=== PATIENT | male | born 1935 | race Caucasian/White ===

== ENCOUNTER 2020-06-16 08:58 | Outpatient (CLI) | payer MEDICARE, SELFPAY ==
--- NOTE | ~2020-06-16 | NM_ITS ---
EXAMINATION: NM hepatobiliary wo pharm DATE: 06/16/2020 13:51 INDICATION: Other specified diseases of biliary tract. Right upper quadrant abdominal pain. Nausea. COMPARISON: None. TECHNIQUE: 5.2 mCi Tc-99m mebrofenin (Choletec) was administered intravenously. Scintigraphic images of the abdomen were obtained for one hour. Then, delayed images were obtained at 4 hours. FINDINGS: There is delayed clearance of radiotracer from the blood pool. There is homogeneous tracer uptake by the liver. At 4 hours, most of the activity remains in the liver. A small amount of activit y has passed to the bowel. Trace activity in the gallbladder fossa is likely in the gallbladder. IMPRESSION: 1. Abnormal persistence of activity in the liver, which may be seen with hepatocellular dysfunction or partial common duct obstruction. Reviewed, dictated and finalized at location A. ISSIONED SALES ASSOCIATE IMPRESSION: 1. Abnormal persistence of activity in the liver, which may be seen with hepat ocellular dysfunction or partial common duct obstruction.
[2020-06-16 09:30] LABS: Basophils Percent Auto 0.3 % (0.2-1.2); Eosinophils Absolute Auto 0.1 K/mm3 (0-0.3); Eosinophils Percent Auto 0.5 % (0-4.4); Hematocrit 40.4 % (42.0-52.0); Hemoglobin 13.3 g/dL (14.0-18.0); Immature Granulocyte Absolute 0.03 K/mm3 (0.00-0.031); Immature Granulocyte Percent A 0.3 % (0-0.5); Lymphocytes Absolute Auto 1.07 K/mm3 (0.9-3.2); Lymphocytes Percent Auto 10.8 % (18.3-44.2); Mean Corpuscular HGB Conc 32.9 g/dl (32-36); Mean Corpuscular Hemoglobin 30.6 pg (26-34); Mean Corpuscular Volume 93.1 fl (80-100); Mean Platelet Volume 9.3 fl (7.4-10.4); Monocytes Absolute Auto 0.6 K/mm3 (0.1-0.6); Monocytes Percent Auto 6.2 % (2.6-8.5); Neutrophils Absolute Auto 8.1 K/mm3 (1.3-6.7); Neutrophils Percent Auto 81.9 % (45.5-73.1); Platelet Count Result 292 k/mm3 (150-375); Red Blood Count 4.34 M/mm3 (4.6-6.20); Red Cell Distribution Width 14.1 % (11.5-14.5); White Blood Count 9.9 K/mm3 (4.5-10.0)
[2020-06-16 09:57] LABS: Alanine Aminotransferase 718 U/L (4-50); Albumin Level 3.8 g/dL (3.5-5.1); Alkaline Phosphatase 629 U/L (38-126); Amylase 81 U/L (30-110); Anion Gap 10 mmol/L (8-16); Aspartate Amino Transferase 662 U/L (17-59); Bilirubin Direct 2.5 mg/dL (0-0.3); Bilirubin,Total 5.2 mg/dL (0.2-1.3); Blood Urea Nitrogen 43 mg/dL (9-20); Calcium 9.8 mg/dL (8.4-10.2); Carbon Dioxide 28 mmol/L (22-30); Chloride 100 mmol/L (98-107); Estimated Glomerular Filt Rate 32; Glucose 181 mg/dL (75-110); Lipase 103 U/L (23-300); Potassium 4.9 mmol/L (3.4-5.0); Sodium 138 mmol/L (137-145)
== END 2020-06-16 08:59 | disposition home or self-care (01) ==
PROVIDERS: PCP Physician Assistant; Visit Provider Physician Assistant
DX: K83.8 Other specified diseases of biliary tract (principal); R93.2 Abnormal findings on diagnostic imaging of liver and biliary tract
CPT/HCPCS: 36415; 78226; 80048; 80076; 82150; 83690; 85025; A9537

== ENCOUNTER → 2020-06-28 12:45 | Outpatient (CLI) | payer MEDICARE, SELFPAY ==
--- NOTE | ~2020-06-28 | MR_ITS ---
EXAMINATION: MR MRCP wo con/w 3D wo ind pp DATE: 06/28/2020 14:45 INDICATION: Calculus of the gallbladder with chronic cholecystitis. TECHNIQUE: Magnetic resonance imaging (MRI) of the abdomen was performed without intravenous contrast due to decreased estimated GFR. Sequences included coronal T2-weighted FS FSE, coronal T2-weighted F SE, axial T1-weighted LAVA, coronal FS FIESTA, axial dual-echo T1-weighted SPGR, coronal lava-FLEX, s agittal T2-weighted FSE, axial T2-weighted FSE, and axial DWI. Thick-slab T2-weighted FSE images were obtained for magnetic resonance cholangiopancreatography (MRCP). Maximum intensity projection 3-D re constructions of the volumetric data were created by the technologist. COMPARISON: Hepatobiliary scintigraphy 06/16/2020 FINDINGS: ABDOMEN MRI: There is mild intrahepatic biliary duct dilatation. The common duct is dilated to 12 mm. There is a 10 mm stone in the distal common bile duct. There are gallstones in the gallbladder, whic h is normal in size. There are small cystic lesions in the pancreas measuring up to 6 mm, likely carol ann gn. The spleen and adrenal glands are normal. There are numerous cysts and hemorrhagic cysts in the k idneys measuring up to 9.0 cm on the left. There is severe atrophy of right kidney. There is severe r ight hydronephrosis. There is 11 mm stone in proximal right ureter. There are no dilated loops of bow el. There is a bladder diverticulum on the right. There is no free intraperitoneal fluid. There are n o pathologically enlarged lymph nodes. ABDOMEN MRCP: There is a 10 mm stone in the distal common bile duct. There is intrahepatic biliary du ct dilatation and dilatation of the common bile duct to 12 mm. IMPRESSION: 1. 10 mm stone in the distal common bile duct with intrahepatic and extrahepatic biliary duct dilatat ion. 2. Cholelithiasis. No evidence of acute cholecystitis. 3. Severe right hydronephrosis and severe right kidney atrophy with 11 mm stone in proximal right ure ter. Reviewed, dictated and finalized at location B. PUMPER IMPRESSION: 1. 10 mm stone in the distal common bile duct with intrahepatic and extrahepati c biliary duct dilatation. 2. Cholelithiasis. No evidence of acute cholecystitis. 3. Severe right hydronephrosis and severe right kidney atrophy with 11 mm stone in proximal right ureter.
[2020-06-28 13:20] LABS: Estimated Glomerular Filt Rate 39
== END ==
PROVIDERS: Visit Provider Surgery
DX: K80.10 Calculus of gallbladder with chronic cholecystitis without obstruction (principal); N13.30 Unspecified hydronephrosis; N26.1 Atrophy of kidney (terminal); N20.1 Calculus of ureter
CPT/HCPCS: 74181; 76376

== ENCOUNTER 2020-07-01 00:18 | Outpatient (CLI) | payer MEDICARE, SELFPAY ==
[2020-07-01 17:38] LABS: SARS-CoV-2 RNA PCR Negative
== END 2020-07-01 00:19 | disposition home or self-care (01) ==
LOC: ANHCOVIDDT 00:20
PROVIDERS: Visit Provider Internal Medicine Gastroenterology
DX: Z01.812 Encounter for preprocedural laboratory examination (principal); Z20.822 Contact with and (suspected) exposure to COVID-19
CPT/HCPCS: C9803; U0003; U0005

== ENCOUNTER 2020-07-05 00:56 | Day surgery (SDC) | payer MEDICARE, SELFPAY ==
[2020-06-30 13:21] VITALS: BMI 26.0
--- NOTE | ~2020-07-05 | XR_ITS ---
EXAMINATION: XR ERCP DATE: 07/05/2020 14:20 INDICATION: Choledocholithiasis. TECHNIQUE: 7 spot fluoroscopic images of the right upper quadrant were obtained during endoscopic ret rograde cholangiopancreatography (ERCP). Fluoroscopy exposure time was 158 seconds. COMPARISON: MRCP 06/28/2020 FINDINGS: There is an endoscope with tip in the second portion of the duodenum. There is a stone in t he common bile duct. Images demonstrate balloon sweeping of the common duct. IMPRESSION: 1. Choledocholithiasis. Please refer to the ERCP procedure note for additional details. Reviewed, dictated and finalized at location A. [employer]
--- NOTE | 2020-07-05 12:15 | WPDANESEPPF ---
Anes - Initial Pre Proc Eval Procedure: Operation Date: 07/05/20 13:30 Proposed Procedures p Endoscopic Retro Cholangiopancreatogram - Yan Guardado MD Date/Time: 07/05/20 12:15 Surgeon: Yan Guardado MD Pre Op Diagnosis: Choledocholithiasis Patient Data Age: 84 Gender: M Height: 1.75 m Weight: 80 kg Allergies Allergy/AdvReac Type Severity Reaction Status Date / Time No Known Allergies Allergy Verified 07/05/20 12:16 Home Medications Medication Instructions Recorded Confirmed Type aspirin 81 mg tablet,delayed 81 mg PO DAILY 02/17/20 07/04/20 History release metformin 1,000 mg tablet 1,000 mg PO QAM 02/17/20 07/04/20 History metoprolol tartrate 25 mg tablet 25 mg PO QAM 02/17/20 07/04/20 History potassium chloride 20 mEq 20 meq PO DAILY 02/17/20 07/04/20 History tablet,extended release(part/cryst) simvastatin 40 mg tablet 40 mg PO DAILY 02/17/20 07/04/20 History rivaroxaban 2.5 mg tablet 2.5 mg PO BID 06/20/20 07/04/20 History cyanocobalamin (vitamin B-12) 1,000 mcg PO DAILY 06/30/20 07/04/20 History losartan-hydrochlorothiazide 1 tablet PO QAM 06/30/20 07/04/20 History xxohgyudakoc-ypu-rcap-FA-vit K 1 tablet PO DAILY 06/30/20 07/04/20 History [Adults Multivitamin] ascorbic acid-bioflavonoids 1 tablet PO BID 07/04/20 07/04/20 History cholecalciferol (vitamin D3) 50 mcg PO BID 07/04/20 07/04/20 History [Vitamin D3] omeprazole magnesium [Prilosec OTC] 20 mg PO DAILY PRN 07/04/20 07/04/20 History zinc gluconate 30 mg PO BID 07/04/20 07/04/20 History ECG: sr, 1st degree avb Other Studies: stress test 01/2020 - small area of mild ischemia in mid-distal ant wall. Unchanged from 5 years ago. 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 S/P hernia surgery umbilical S/P trigger finger release Family History Family History Other Family history of heart disease in male family member before age 55 Family history of malignant neoplasm Family history of tuberculosis Social History Social History (Updated 06/22/20 @ 09:39 by Kala Scott [facility]) Smoking packs per day: 2 Smoking cigarettes per day: 40.0 Years smoked: 60 Smoking pack-years: 120.00 Smoking status: Former smoker Tobacco type: cigarettes Smoking end date: 12/08/09 Alcohol intake: current Substance use: never Substance use type: does not use Living arrangements: with family Additional living arrangements comments: Gender identity (if verbalized by the patient): Male Spiritual care concerns: No Anes - Eval Final PreProcedure Day of Procedure 07/05/20 12:15 Patient weight: overweight Heart: regular rate and rhythm Lungs: clear to auscultation and normal air movement Airway: Mallampati scale class II Neurological: alert and oriented Last oral intake: >/= 8 hours ASA classification: III Emergent: no Anesthetic plan: proceed Anesthesia type and monitoring: general ETT Informed Consent: The patient's anesthetic plan and its attendant risks and benefits were discussed with the patient/family/POA. Questions were solicited and answers provided to the satisfaction of the patient/family/POA.
[2020-07-05 12:18] VITALS: BP 129/36; PULSE 43; RESP 15; TEMP 36.4; O2SAT 99; BMI 25.6
--- NOTE | 2020-07-05 12:22 | ECG_ITS ---
Measurements Intervals [place] Rate: 44 P: 2 NH: 256 QRS: -37 QRSD: 114 T: 83 QT: 480 QTc: 415 Interpretive Statements SINUS BRADYCARDIA WITH FIRST DEGREE AV BLOCK LEFT AXIS DEVIATION INCOMPLETE LEFT BUNDLE BRANCH BLOCK DELAYED PRECORDIAL R/S TRANSITION BORDERLINE ST-T WAVE ABNORMALITY- HIGH LATERAL LEADS BASELINE ARTIFACT- I, II ABNORMAL ECG Electronically Signed On 07-05-2020 12:49:49 EXTRUSION MANAGER by Romain Ocampo D.O.
[2020-07-05] MEDS: LACTATED RINGERS 1,000 ML 150 ML IV CONT (12:32)
[2020-07-05] MEDS: levoFLOXacin 500 MG/D5W 100 ML 500 MG/100 ML BAG 100 MG IVPB (12:36)
[2020-07-05 12:40] LABS: Glucose Point of Care 150 (65-105)
--- NOTE | 2020-07-05 13:31 | PM.HPGS ---
History of Present Illness History of Present Illness Consent: Risks, benefits, and alternatives have been discussed and questions answered. Patient agrees to proceed with procedure. Chief complaint: Choledocholithiasis Narrative: Byron Ovalle is a 84 year old male with recent diagnosis of chronic cholecystitis after intermittent epigastric pain with nausea and vomiting, had elevated liver enzymes and seeing by Dr Lamar, MRCP also showed choledocholithiasis. Last few days he has been asymptomatic, no more nausea or pain. He also has been holding his blood thinner since Saturday. Denies history of pancreatitis or etoh use. Review of Systems Constitutional: Constitutional: Denies headache(s) and Denies weakness Eyes: Eyes: Denies blurry vision ENT: Reports Normal hearing present, Denies headache(s) and Denies neck pain Cardiovascular: Cardiovascular: Denies chest pain and Denies dyspnea Respiratory: Respiratory: Denies dyspnea Gastrointestinal: Gastrointestinal: Reports no additional gastrointestinal complaints Genitourinary: Genitourinary: Denies dysuria Musculoskeletal: Musculoskeletal: Denies neck pain Integumentary/Breasts: Skin/Breast: Denies dry skin Neurologic: Reports Normal hearing present, Denies headache(s) and Denies weakness Psychiatric: Psychiatric: Denies anxiety Endocrine: Endocrine: Denies change in body appearance Hematologic/Lymphatic: Hematologic/Lymphatic: Denies easy bleeding Allergic/Immunologic: Allergic/Immunologic: Denies urticaria PMFSH Past Medical History Medical History (Updated 07/05/20 @ 13:33 by Yan Guardado MD) CAD (coronary artery disease) Diabetes Elevated liver enzymes High cholesterol Hypertension Surgical History Surgical History (Updated 07/05/20 @ 12:17 by Kulwant Hood MD) 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 S/P hernia surgery umbilical S/P trigger finger release Family History Family History Other Family history of heart disease in male family member before age 55 Family history of malignant neoplasm Family history of tuberculosis Social History Social History (Updated 06/22/20 @ 09:39 by Kala Scott CMA) Smoking packs per day: 2 Smoking cigarettes per day: 40.0 Years smoked: 60 Smoking pack-years: 120.00 Smoking status: Former smoker Tobacco type: cigarettes Smoking end date: 12/08/09 Alcohol intake: current Substance use: never Substance use type: does not use Living arrangements: with family Additional living arrangements comments: Gender identity (if verbalized by the patient): Male Spiritual care concerns: No Meds Home Medications and Allergies Home Medications Medication Instructions Recorded Confirmed Type aspirin 81 mg tablet,delayed 81 mg PO DAILY 02/17/20 07/05/20 History release metformin 1,000 mg tablet 1,000 mg PO QAM 02/17/20 07/05/20 History metoprolol tartrate 25 mg tablet 25 mg PO QAM 02/17/20 07/05/20 History potassium chloride 20 mEq 20 meq PO DAILY 02/17/20 07/05/20 History tablet,extended release(part/cryst) simvastatin 40 mg tablet 40 mg PO DAILY 02/17/20 07/05/20 History rivaroxaban 2.5 mg tablet 2.5 mg PO BID 06/20/20 07/05/20 History cyanocobalamin (vitamin B-12) 1,000 mcg PO DAILY 06/30/20 07/05/20 History losartan-hydrochlorothiazide 1 tablet PO QAM 06/30/20 07/05/20 History rpnvoajeikow-qsa-jwaf-FA-vit K 1 tablet PO DAILY 06/30/20 07/05/20 History [Adults Multivitamin] ascorbic acid-bioflavonoids 1 tablet PO BID 07/04/20 07/05/20 History cholecalciferol (vitamin D3) 50 mcg PO BID 07/04/20 07/05/20 History [Vitamin D3] omeprazole magnesium [Prilosec OTC] 20 mg PO DAILY PRN 07/04/20 07/05/20 History zinc gluconate 30 mg PO BID 07/04/20 07/05/20 History Allergies Allergy/AdvReac Type Severity Reaction Status Date / Time No Known Allergies Allergy Verified 07/05/20
[2020-07-05] MEDS: INDOMETHACIN 50 MG SUPP.RECT 100 MG RECTAL (13:44)
[2020-07-05 14:24] VITALS: BP 162/74; PULSE 73; RESP 15; TEMP 36.6; O2SAT 100
[2020-07-05 14:34] VITALS: BP 129/79; PULSE 53; RESP 15; O2SAT 100
[2020-07-05 14:38] LABS: Glucose Point of Care 142 (65-105)
[2020-07-05 14:43] VITALS: BP 141/57; PULSE 57; RESP 15; O2SAT 100
[2020-07-05 14:53] VITALS: BP 154/65; PULSE 46; RESP 15; O2SAT 99
[2020-07-05 15:03] VITALS: BP 112/78; PULSE 52; RESP 15; O2SAT 100
== END 2020-07-05 15:30 | disposition home or self-care (01) ==
PROVIDERS: PCP Physician Assistant; Visit Provider Internal Medicine Gastroenterology
PROC: (CPT 43260; principal; 2020-07-05 13:30)
DX: R94.5 Abnormal results of liver function studies (principal); K80.64 Calculus of gallbladder and bile duct with chronic cholecystitis without obstruction; K57.10 Diverticulosis of small intestine without perforation or abscess without bleeding; K29.80 Duodenitis without bleeding; I25.10 Atherosclerotic heart disease of native coronary artery without angina pectoris; E11.9 Type 2 diabetes mellitus without complications; I10 Essential (primary) hypertension; E78.00 Pure hypercholesterolemia, unspecified; Z95.1 Presence of aortocoronary bypass graft; Z87.891 Personal history of nicotine dependence; Z79.82 Long term (current) use of aspirin; Z79.01 Long term (current) use of anticoagulants; Z79.84 Long term (current) use of oral hypoglycemic drugs
CPT/HCPCS: 43262; 43264; 74329; 93005; A9270; J1956; J2704; J7120

== ENCOUNTER 2020-07-06 00:33 | Day surgery (SDC) | payer MEDICARE, SELFPAY ==
[2020-07-04 14:48] VITALS: BMI 26.0
[2020-07-06] VITALS (8 sets, daily range): BP systolic 130–152; BP diastolic 46–94; PULSE 43–62; RESP 14–16; TEMP 36.5–36.6; O2SAT 94–100
--- NOTE | ~2020-07-06 | XR_ITS ---
EXAMINATION: XR cholangiogram surg 1st inj DATE: 07/06/2020 09:07 INDICATION: Intraoperative evaluation during laparoscopic cholecystectomy TECHNIQUE: Multiple fluoroscopic images of the right upper quadrant were obtained during intraoperati ve cholangiography performed by Dr. Lamar. Radiologist was not present for the procedure imaging. A total of 271 fluoroscopic images were obtained. The amount of fluoroscopy time used during this pro cedure was 0.7 minutes. COMPARISON: None. FINDINGS: Cannulation of the cystic duct demonstrates filling of a mildly dilated common bile duct wh ich tapers abruptly at the ampulla. There is an irregular filling defect in the distal duct, initiall y with spiculated margins which moves towards the ampulla and changes in configuration during the cou rse of injection which would favor sludge over gallstones. A residual and smaller more subtle filling defect remains in the distal duct on the second set of cine images. Contrast fills a prominent diver ticulum arising from the second portion of the duodenum. Multiple surgical clips consistent with chol ecystectomy. Trace amount of contrast extravasation at the site of cannulation. IMPRESSION: 1. Persistent mildly dilated common bile duct with residual small bowel irregular filling defects at the distal duct which appear to change in morphology which would favor sludge over stones. Reviewed, dictated and finalized at location B. OPERATOR IMPRESSION: 1. Persistent mildly dilated common bile duct with residual small bowel irregul ar filling defects at the distal duct which appear to change in morphology whic h would favor sludge over stones.
--- NOTE | 2020-07-06 06:56 | WPDANESEFPP ---
Anes - Eval Final PreProcedure Day of Procedure 07/06/20 06:56 Patient weight: overweight Heart: regular rate and rhythm Lungs: clear to auscultation and normal air movement Airway: Mallampati scale class II Neurological: alert and oriented Last oral intake: >/= 8 hours ASA classification: III Emergent: no Anesthetic plan: proceed Anesthesia type and monitoring: general ETT and standard monitoring Informed Consent: The patient's anesthetic plan and its attendant risks and benefits were discussed with the patient/family/POA. Questions were solicited and answers provided to the satisfaction of the patient/family/POA.
[2020-07-06] MEDS: ACETAMINOPHEN 500 MG TABLET 1000 MG PO (07:05)
[2020-07-06] MEDS: LACTATED RINGERS 1,000 ML 30 ML IV CONT ×2 (07:06→09:45)
[2020-07-06] MEDS: KETOROLAC 15 MG/ML VIAL (*BKC) IV PUSH (07:08)
[2020-07-06 07:10] LABS: Glucose Point of Care 128 (65-105)
--- NOTE | 2020-07-06 07:18 | WPDHPUPDATE1 ---
History and Physical Update Update Date/Time: 07/06/20 07:18 History and Physical has been reviewed, including an updated exam of the patient. There are changes in the patient's condition. Pt had an ERCP yesterday and a medium size stone was extracted without problems. Risks, benefits, and alternatives have been discussed and questions answered. Patient agrees to proceed with procedure.
[2020-07-06 07:20] LABS: Hematocrit 37.8 % (42.0-52.0); Hemoglobin 12.5 g/dL (14.0-18.0); Mean Corpuscular HGB Conc 33.1 g/dl (32-36); Mean Corpuscular Hemoglobin 29.8 pg (26-34); Mean Corpuscular Volume 90.2 fl (80-100); Mean Platelet Volume 9.7 fl (7.4-10.4); Platelet Count Result 227 k/mm3 (150-375); Red Blood Count 4.19 M/mm3 (4.6-6.20); Red Cell Distribution Width 13.2 % (11.5-14.5); White Blood Count 6.9 K/mm3 (4.5-10.0)
--- NOTE | 2020-07-06 07:32 | SUR.PREOP ---
pt taken to bathroom to void [id number]
[2020-07-06 07:34] LABS: Alanine Aminotransferase 170 U/L (4-50); Albumin Level 3.4 g/dL (3.5-5.1); Alkaline Phosphatase 625 U/L (38-126); Amylase 95 U/L (30-110); Anion Gap 5 mmol/L (8-16); Aspartate Amino Transferase 52 U/L (17-59); Bilirubin,Total 0.9 mg/dL (0.2-1.3); Blood Urea Nitrogen 27 mg/dL (9-20); Calcium 8.9 mg/dL (8.4-10.2); Carbon Dioxide 26 mmol/L (22-30); Chloride 104 mmol/L (98-107); Estimated CRCL calculation 38 ml/min; Estimated Glomerular Filt Rate 53; Glucose 132 mg/dL (75-110); Lipase 88 U/L (23-300); Potassium 4.2 mmol/L (3.4-5.0); Sodium 135 mmol/L (137-145)
[2020-07-06] MEDS: ceFAZolin 2 GM/D5W 50 ML 2 GM/50 ML BAG IVPB (08:11)
[2020-07-06] MEDS: BUPIVACAINE/EPINEPHRINE 0.5% 10 ML VIAL 30 ML INFILTRATE (08:15)
[2020-07-06 09:51] LABS: Glucose Point of Care 163 (65-105)
--- NOTE | 2020-07-06 17:32 | PM.PROC ---
Procedure Note - Detailed Date of procedure: 07/06/20 Pre-op diagnosis: chronic cholecystitis with cholelithiasis 2. Recent choledocholithiasis status post ERCP Post-op diagnosis: same Procedure performed: Laparoscopic cholecystectomy with intraoperative cholangiogram. Description of procedure: Procedure Details: Patient was seen preoperatively in the holding area and risks, benefits and alternatives confirmed. Patient was taken to the operating room and general anesthesia was induced. A time out was then preformed with the surgery team confirming patient and site of surgery. The abdomen was prepped and draped in the usual sterile fashion. Because this patient has previously had an umbilical hernia repair I entered the abdomen with the Veress needle technique in the left upper quadrant 2 fingerbreadths below the costal margin. First the patient was placed slightly head up and an OG tube was in place which was placed to suction. Following this local anesthetic was infiltrated in the skin and 11 blade knife was used to make a 5 mm incision. Two towel clips were applied to the skin. A regular size Veress needle was connected to a syringe and the plunger removed. With 5 cc of saline in it we carefully advanced the Veress needle through the 1st layer of fascia and opened the Veress needle to the syringe. Following this I felt a nice pop through the peritoneum and there was a good water flow of the water drop test from the syringe. This was removed and CO2 gas was connected. We then insufflated the abdomen to 14 mmHg pressure CO2 gas. Following this I placed a 5 mm trocar over the 0 degree 5 mm scope carefully twisted this into the abdomen without difficulty. We entered a nicely inflated peritoneum and CO2 gas was connected to this port and increased to a 4o L. per minute flow. Following this we carefully inspected underneath the area of the umbilicus and found that on the right lateral part of his scar from his previous umbilical incision we could make a small incision and insert our 12 mm trocar for the 10 mm camera just a little bit to the right of his umbilicus. This was placed under direct vision using the laparoscope in left upper quadrant the abdomen. Subsequent I placed the 2 other 5 mm ports. The following trocars were introduced under direct vision: two 5 mm trocars along the right costal margin. We found significant adhesions to the gallbladder which were taken down with Bovie cautery using both the right angle cautery and the scissors. Once we could nicely see the triangle of colo began the dissection to dissect out the cystic duct and cystic artery. The gall bladder was grasped and the cystic duct and artery were dissected free and clipped with an 5 mm endo-clip customer order clerk. A small hole was made in the cystic duct with endoshears and a cholagio-cath introduced. A cholangiogram was obtained revealing free flow into the cystic duct, common bile duct, common hepatic, right and left hepatic ducts with free flow into the duodenum with not of only small filling defects suggesting sludge in the extrahepatic biliary tree and there was still some dilation of the entire CBD. At this point I flushed the system with 20 cc of saline and repeated the run on the cholangiogram. On the 2nd run there was perhaps a seizure S Thatch of still some small filling defects present in the distal common bile duct but this had cleared significantly and there was a significant amount of dye within the duodenum. Following this I consulted with from her from Radiology and he agreed with the above assessment. He agreed that there was still some dilation of the common bile duct and however that there was good dye flow into the duodenum so he felt that this would clear on its own. This was a specially felt to be true in view of the recent sphincterotomy and stone extraction done by ERCP yesterday by Dr. Farr. At this point then the catheter was removed and the cystic duct was clippe
== END 2020-07-06 12:08 | disposition home or self-care (01) ==
PROVIDERS: PCP Physician Assistant; Visit Provider Surgery
PROC: 0FT44ZZ Resection of Gallbladder, Percutaneous Endoscopic Approach (ICD-10-PCS; CPT 47562; principal; 2020-07-06 07:30)
DX: K80.10 Calculus of gallbladder with chronic cholecystitis without obstruction (principal); K83.8 Other specified diseases of biliary tract; I10 Essential (primary) hypertension; E11.51 Type 2 diabetes mellitus with diabetic peripheral angiopathy without gangrene; E78.00 Pure hypercholesterolemia, unspecified; Z87.891 Personal history of nicotine dependence; Z79.82 Long term (current) use of aspirin; Z79.84 Long term (current) use of oral hypoglycemic drugs; Z79.01 Long term (current) use of anticoagulants
CPT/HCPCS: 47563; 36415; 74300; 80053; 80076; 82150; 83690; 85027; 88304; A9270; J0690; J1100; J1885; J2370; J2405; J2704; J2710; J3010; J7030; J7120; Q9966

== ENCOUNTER → 2021-01-17 11:30 | Outpatient (REF) | payer MEDICARE, SELFPAY | LOC: ANHLAB 11:30 | PROVIDERS: PCP Physician Assistant; Visit Provider Nurse Practitioner | DX: L81.4 Other melanin hyperpigmentation (principal) | CPT/HCPCS: 88305; 88342 ==

== ENCOUNTER 2021-02-15 11:25 | Outpatient (CLI) | payer MEDICARE, SELFPAY ==
--- NOTE | 2021-02-15 | ECG_ITS ---
Measurements Intervals [place] Rate: 40 P: -19 TN: 320 QRS: -39 QRSD: 125 T: 87 QT: 492 QTc: 404 Interpretive Statements SINUS BRADYCARDIA WITH MARKED FIRST DEGREE AV BLOCK LEFT AXIS DEVIATION RIGHT BUNDLE BRANCH BLOCK BASELINE ARTIFACT- II, III, AVF ABNORMAL ECG Electronically Signed On 02-15-2021 13:55:02 CDT by Romain Ocampo D.O.
== END 2021-02-15 11:26 | disposition home or self-care (01) ==
LOC: ANHCARD 11:28
PROVIDERS: PCP Physician Assistant; Visit Provider Internal Medicine Nephrology
DX: I10 Essential (primary) hypertension (principal); E11.21 Type 2 diabetes mellitus with diabetic nephropathy; I12.9 Hypertensive chronic kidney disease with stage 1 through stage 4 chronic kidney disease, or unspecified chronic kidney disease; E11.22 Type 2 diabetes mellitus with diabetic chronic kidney disease; N18.31 Chronic kidney disease, stage 3a; D63.1 Anemia in chronic kidney disease; R94.31 Abnormal electrocardiogram [ECG] [EKG]
CPT/HCPCS: 93005

== ENCOUNTER 2021-03-11 20:53 | Emergency (ER) | payer MEDICARE, SELFPAY ==
[2021-03-11 21:23] VITALS: BP 105/73; PULSE 57; RESP 16; TEMP 36.4; O2SAT 100
[2021-03-11 23:38] VITALS: BP 195/62; PULSE 61; RESP 18; O2SAT 98
--- NOTE | 2021-03-11 23:39 | PC.NURSE ---
Pt moved from ED 21 to ED 2, sitting in chair with present. dressing to right forearm remains dry and intact without evidence of bleeding. pt denies complaints. denies pain. reports was scratched by his daughter's dog, who he believe is UTD on its shots.
--- NOTE | 2021-03-12 02:06 | ED.WOUNDLAC ---
HPI - Wound/Laceration General Chief Complaint: Wound/Laceration Stated Complaint: Dog scratch to right forearm Time Seen by Provider: 03/12/21 01:20 History of Present Illness HPI narrative: Patient is an 85-year-old male who presents ER with a skin tear to the right forearm. A dog jumped up and scratched him with his nail. He was not bit. He is on a blood thinner so has been bleeding persistently. Dog has all of its shots. His tetanus shot is up-to-date. No numbness or tingling or range of motion deficit in the arm. Related Data Home Medications Medication Instructions Recorded Confirmed aspirin 81 mg tablet,delayed 81 mg PO DAILY 02/17/20 01/17/21 release metoprolol tartrate 25 mg tablet 25 mg PO QAM 02/17/20 01/17/21 potassium chloride 20 mEq 20 meq PO DAILY 02/17/20 01/17/21 tablet,extended release(part/cryst) simvastatin 40 mg tablet 40 mg PO DAILY 02/17/20 01/17/21 rivaroxaban 2.5 mg tablet 2.5 mg PO BID 06/20/20 01/17/21 Adults Multivitamin 1 tablet PO DAILY 06/30/20 01/17/21 cyanocobalamin (vitamin B-12) 1,000 mcg PO DAILY 06/30/20 01/17/21 losartan-hydrochlorothiazide 1 tablet PO QAM 06/30/20 01/17/21 cholecalciferol (vitamin D3) 50 mcg PO BID 07/04/20 07/19/20 [Vitamin D3] omeprazole magnesium [Prilosec OTC] 20 mg PO DAILY PRN 07/04/20 07/19/20 omega-3 fatty acids [Fish Oil PO 01/17/21 01/17/21 Concentrate] sitagliptin 25 mg tablet 25 mg PO DAILY 01/17/21 01/17/21 Allergies Allergy/AdvReac Type Severity Reaction Status Date / Time No Known Allergies Allergy Verified 03/11/21 21:29 Review of Systems Musculoskeletal: Musculoskeletal: Denies arthralgias, Denies joint swelling and Denies muscle cramps Integumentary/Breasts: Skin/Breast: Denies erythema and Denies rash Comments: Right forearm skin tear Neurologic: Denies focal weakness and Denies numbness PMFSH Past Medical History Medical History CAD (coronary artery disease) Diabetes Elevated liver enzymes High cholesterol Hypertension Surgical History Surgical History 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 Hx laparoscopic cholecystectomy S/P hernia surgery umbilical S/P trigger finger release Family History Family History Other Family history of heart disease in male family member before age 55 Family history of malignant neoplasm Family history of tuberculosis Social History Social History Smoking packs per day: 2 Smoking cigarettes per day: 40.0 Years smoked: 60 Smoking pack-years: 120.00 Tobacco type: cigarettes Smoking end date: 12/08/09 Alcohol intake: current Substance use: never Substance use type: does not use Additional living arrangements comments: Gender identity (if verbalized by the patient): Male Spiritual care concerns: No Exam Narrative: GENERAL: Well-appearing, well-nourished, and in no acute distress. HEAD: Normocephalic, atraumatic. EXTREMITIES: Normal range of motion. No edema. V-shaped laceration right forearm bleeding controlled, 2.5 cm in length. SKIN: Warm, dry, no rash. NEURO: Alert and oriented x3. PSYCH: Normal mood and affect. Course Course Emergency Course: Wound dressed with Tegaderm and antibiotic ointment. Discharge home. Vital Signs Vital signs: Vital Signs Temperature 97.5 F L 03/11/21 21:23 Pulse Rate 57 L 03/11/21 21:23 Respiratory Rate 16 03/11/21 21:23 Blood Pressure 105/73 03/11/21 21:23 Pulse Oximetry 100 03/11/21 21:23 Temperature 97.5 F L 03/11/21 21:23 Pulse Rate 61 03/11/21 23:38 Respiratory Rate 18 03/11/21 23:38 Blood Pressure 195/62 H 03/11/21 23:38 Pulse Oximetry 98 03/11/21 23:38 Discharge Plan Discharge Clinical Impression: Skin tear Adelita
[2021-03-12 02:22] VITALS: BP 160/80; PULSE 72; RESP 14; O2SAT 99
== END 2021-03-12 02:26 | disposition home or self-care (01) ==
PROVIDERS: Emergency Provider Emergency Medicine; PCP Physician Assistant
DX: S51.811A Laceration without foreign body of right forearm, initial encounter (principal); I25.10 Atherosclerotic heart disease of native coronary artery without angina pectoris; E11.9 Type 2 diabetes mellitus without complications; E78.00 Pure hypercholesterolemia, unspecified; I10 Essential (primary) hypertension; Z95.1 Presence of aortocoronary bypass graft; Z79.01 Long term (current) use of anticoagulants; Z79.82 Long term (current) use of aspirin; Z87.891 Personal history of nicotine dependence; W54.8XXA Other contact with dog, initial encounter
CPT/HCPCS: 99282

== ENCOUNTER → 2021-04-03 11:00 | Outpatient (REF) | payer MEDICARE, SELFPAY | LOC: ANHLAB 11:00 | PROVIDERS: PCP Physician Assistant; Visit Provider Nurse Practitioner | DX: L72.8 Other follicular cysts of the skin and subcutaneous tissue (principal) | CPT/HCPCS: 88304 ==

== ENCOUNTER 2021-08-29 00:02 | Day surgery (SDC) | payer MEDICARE, SELFPAY ==
[2021-08-21 13:35] VITALS: BMI 29.5
--- NOTE | 2021-08-24 10:45 | PC.NURSE ---
PATIENT CALLED REGARDING XARELTO, PT IS VERY HARD OF HEARING, INSTRUCTIONS GIVEN TO SPOUSE ALEJANDRO. SHE VERBALIZES UNDERSTANDING FOR HIM TO HOLD XARELTO STARTING ON Saturday08/27/2021
[2021-08-29 07:11] VITALS: BP 130/60; PULSE 82; RESP 16; TEMP 36.1; O2SAT 97; BMI 29.0
[2021-08-29] MEDS: LACTATED RINGERS 1,000 ML 150 ML IV CONT (07:38)
[2021-08-29 07:39] LABS: Glucose Point of Care 153 mg/dl (65-105)
--- NOTE | 2021-08-29 07:48 | WPDANESEPPF ---
Anes - Initial Pre Proc Eval Procedure: Operation Date: 08/29/21 08:30 Proposed Procedures p Screening Colonoscopy - Yan Guardado MD Date/Time: 08/29/21 07:48 Surgeon: Yan Guardado MD Pre Op Diagnosis: hx of colon polyps Patient Data Age: 85 Gender: M Height: 1.73 m Weight: 86.7 kg Last Vital Signs Temp 36.1 C L 08/29/21 07:11 Pulse 82 08/29/21 07:11 Resp 16 08/29/21 07:11 BP 130/60 08/29/21 07:11 Pulse Ox 97 08/29/21 07:11 Allergies Allergy/AdvReac Type Severity Reaction Status Date / Time No Known Allergies Allergy Verified 08/29/21 07:24 Home Medications Medication Instructions Recorded Confirmed Type aspirin 81 mg tablet,delayed 81 mg PO DAILY 02/17/20 08/29/21 History release rivaroxaban 2.5 mg tablet 2.5 mg PO BID 06/20/20 08/29/21 History Adults Multivitamin 1 tablet PO DAILY 06/30/20 08/29/21 History losartan-hydrochlorothiazide 1 tablet PO QAM 06/30/20 08/29/21 History cholecalciferol (vitamin D3) 50 mcg PO BID 07/04/20 08/29/21 History [Vitamin D3] omeprazole magnesium [Prilosec OTC] 20 mg PO DAILY PRN 07/04/20 08/29/21 History sitagliptin 25 mg tablet 25 mg PO DAILY 01/17/21 08/29/21 History [place] 3 Fish Oil 1 cap PO BID 08/21/21 08/29/21 History Vitamin D Synergy 50 mcg PO DAILY 08/21/21 08/29/21 History atorvastatin 40 mg PO DAILY 08/21/21 08/29/21 History cyanocobalamin (vitamin B-12) 500 mcg PO DAILY 08/21/21 08/29/21 History [Vitamin B-12] zinc gluconate [Zinc-50] 50 mg PO DAILY 08/21/21 08/29/21 History Laboratory Tests 08/29/21 07:31 POC Capillary Glucose 153 mg/dl H mg/dl (65-105) Patient hx anesthesia problems: none Family hx anesthesia problems: none Results Review: All pre-operative results and documents have been reviewed as part of the pre-operative evaluation. [facility] Past Medical History Medical History CAD (coronary artery disease) Diabetes Elevated liver enzymes High cholesterol Hypertension PVD (peripheral vascular disease) Surgical History Surgical History 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 Hx laparoscopic cholecystectomy S/P hernia surgery umbilical S/P trigger finger release Family History Family History Other Family history of heart disease in male family member before age 55 Family history of malignant neoplasm Family history of tuberculosis Social History Social History Smoking packs per day: 2 Smoking cigarettes per day: 40.0 Years smoked: 57 Smoking pack-years: 114.00 Smoking status: Former smoker Tobacco type: cigarettes Smoking end date: 12/08/09 Additional smoking assessment comments: SMOKED 2 PKS/DAY FOR APPROX 15YRS Alcohol intake: current Substance use: never Substance use type: does not use Living arrangements: with family Additional living arrangements comments: Gender identity (if verbalized by the patient): Male Spiritual care concerns: No Anes - Eval Final PreProcedure Day of Procedure 08/29/21 07:48 Patient weight: overweight Heart: regular rate and rhythm Lungs: decreased breath sounds Airway: Mallampati scale class II Neurological: other (alert) Last oral intake: >/= 8 hours ASA classification: IV Emergent: no Anesthetic plan: proceed Anesthesia type and monitoring: general GIVS and standard monitoring Results Review: All pre-operative results and documents have been reviewed as part of the pre-operative evaluation. Informed Consent: The patient's anesthetic plan and its attendant risks and benefits were discussed with the patient/family/POA. Questions were solicited and answers provided to the satisfaction of the patient/family/POA.
--- NOTE | 2021-08-29 08:22 | PM.HPGS ---
History of Present Illness History of Present Illness Consent: Risks, benefits, and alternatives have been discussed and questions answered. Patient agrees to proceed with procedure. Chief complaint: hx of colon polyps Narrative: Byron Ovalle is a 85 year old male here for colonoscopy, last one about 5 years ago with polyp Review of Systems Constitutional: Constitutional: Denies headache(s) and Denies weakness Eyes: Eyes: Denies blurry vision ENT: Reports Normal hearing present, Denies headache(s) and Denies neck pain Cardiovascular: Cardiovascular: Denies chest pain and Denies dyspnea Respiratory: Respiratory: Denies dyspnea Gastrointestinal: Gastrointestinal: Reports no additional gastrointestinal complaints Genitourinary: Genitourinary: Denies dysuria Musculoskeletal: Musculoskeletal: Denies neck pain Integumentary/Breasts: Skin/Breast: Denies dry skin Neurologic: Reports Normal hearing present, Denies headache(s) and Denies weakness Psychiatric: Psychiatric: Denies anxiety Endocrine: Endocrine: Denies change in body appearance Hematologic/Lymphatic: Hematologic/Lymphatic: Denies easy bleeding Allergic/Immunologic: Allergic/Immunologic: Denies urticaria PMFSH Past Medical History Medical History (Updated 08/29/21 @ 08:23 by Yan Guardado MD) Adenomatous colon polyp CAD (coronary artery disease) Diabetes Elevated liver enzymes High cholesterol Hypertension PVD (peripheral vascular disease) Surgical History Surgical History 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 Hx laparoscopic cholecystectomy S/P hernia surgery umbilical S/P trigger finger release Family History Family History Other Family history of heart disease in male family member before age 55 Family history of malignant neoplasm Family history of tuberculosis Social History Social History Smoking packs per day: 2 Smoking cigarettes per day: 40.0 Years smoked: 57 Smoking pack-years: 114.00 Smoking status: Former smoker Tobacco type: cigarettes Smoking end date: 12/08/09 Additional smoking assessment comments: SMOKED 2 PKS/DAY FOR APPROX 15YRS Alcohol intake: current Substance use: never Substance use type: does not use Living arrangements: with family Additional living arrangements comments: Gender identity (if verbalized by the patient): Male Spiritual care concerns: No Meds Home Medications and Allergies Home Medications Medication Instructions Recorded Confirmed Type aspirin 81 mg tablet,delayed 81 mg PO DAILY 02/17/20 08/29/21 History release rivaroxaban 2.5 mg tablet 2.5 mg PO BID 06/20/20 08/29/21 History Adults Multivitamin 1 tablet PO DAILY 06/30/20 08/29/21 History losartan-hydrochlorothiazide 1 tablet PO QAM 06/30/20 08/29/21 History cholecalciferol (vitamin D3) 50 mcg PO BID 07/04/20 08/29/21 History [Vitamin D3] omeprazole magnesium [Prilosec OTC] 20 mg PO DAILY PRN 07/04/20 08/29/21 History sitagliptin 25 mg tablet 25 mg PO DAILY 01/17/21 08/29/21 History [place] 3 Fish Oil 1 cap PO BID 08/21/21 08/29/21 History Vitamin D Synergy 50 mcg PO DAILY 08/21/21 08/29/21 History atorvastatin 40 mg PO DAILY 08/21/21 08/29/21 History cyanocobalamin (vitamin B-12) 500 mcg PO DAILY 08/21/21 08/29/21 History [Vitamin B-12] zinc gluconate [Zinc-50] 50 mg PO DAILY 08/21/21 08/29/21 History Allergies Allergy/AdvReac Type Severity Reaction Status Date / Time No Known Allergies Allergy Verified 08/29/21 07:24 Vital Signs Vital Signs - 24 hr 08/29/21 07:11 Temperature 97.0 F L Pulse Rate 82 Respiratory Rate 16 Blood Pressure 130/60 Pulse Oximetry 97 Exam Const: General: comfortable and no acute distress HENMT: General nose exam: Normal nares present Eye
[2021-08-29 08:52] VITALS: BP 122/57; PULSE 71; RESP 22; O2SAT 95
[2021-08-29 09:02] VITALS: BP 139/58; PULSE 70; RESP 19; O2SAT 99
[2021-08-29 09:18] VITALS: BP 143/64; PULSE 65; RESP 20; O2SAT 99
== END 2021-08-29 09:25 | disposition home or self-care (01) ==
PROVIDERS: PCP Physician Assistant; Visit Provider Internal Medicine Gastroenterology
PROC: 0DJD8ZZ Inspection of Lower Intestinal Tract, Via Natural or Artificial Opening Endoscopic (ICD-10-PCS; CPT 45378; principal; 2021-08-29 08:30)
DX: Z12.11 Encounter for screening for malignant neoplasm of colon (principal); K63.5 Polyp of colon; D12.2 Benign neoplasm of ascending colon; D12.4 Benign neoplasm of descending colon; K57.30 Diverticulosis of large intestine without perforation or abscess without bleeding; I25.10 Atherosclerotic heart disease of native coronary artery without angina pectoris; E11.9 Type 2 diabetes mellitus without complications; I10 Essential (primary) hypertension; I73.9 Peripheral vascular disease, unspecified; E78.00 Pure hypercholesterolemia, unspecified; R74.01 Elevation of levels of liver transaminase levels; Z95.1 Presence of aortocoronary bypass graft; Z90.49 Acquired absence of other specified parts of digestive tract; Z87.891 Personal history of nicotine dependence; Z79.01 Long term (current) use of anticoagulants; Z79.82 Long term (current) use of aspirin
CPT/HCPCS: 45385; 45380; 82948; 88305; J2704; J7120

== ENCOUNTER 2022-07-27 15:43 | Outpatient (CLI) | payer MEDICARE, SELFPAY ==
--- NOTE | ~2022-07-27 | CT_ITS ---
Non-contrast CT scan of the Abdomen and Pelvis Clinical indication: Microscopic hematuria Technique: 5 mm axial scans were obtained through the abdomen and pelvis without intravenous or oral contrast. Dose reduction technique was used on this scan by utilizing automated exposure control and iterative reconstruction technique. The dose-length product (DLP) was 1068.43 mGy-cm. Findings: Images through the lung bases reveal possible minimal chronic bibasilar interstitial disea se. There is a 1.6 x 1.1 cm stone in the proximal right ureter, with Hounsfield units of approximately 15 00. There is severe right hydroureteronephrosis up to the level of stone, with marked, diffuse cortic al thinning of the right kidney. There is a 6.2 cm exophytic hyperdense cyst versus solid mass arisin g from the superior right renal pole. Left kidney demonstrates multiple simple and small hyperdense cysts, without hydronephrosis. No left renal or left ureteral stone. The liver, spleen, pancreas, and adrenals appear normal. Cholecystectomy clips noted. There is no aor tic aneurysm. There is extensive atherosclerotic change of the infrarenal abdominal aorta, with appar ent aortic stent present. There is no evidence of bowel obstruction. Images through the pelvis were performed. There is no evidence of ascites or lymphadenopathy. Urinary bladder diverticulum present at the posterior right side of the urinary bladder. Prostate gland is m ildly enlarged. Seminal vesicles are grossly unremarkable. Impression: 1.6 x 1.1 cm proximal right ureteral stone, as detailed above, with associated severe right hydrouret eronephrosis up to the level the stone. 6.2 cm right upper pole hyperdense cyst versus solid mass. Given size of the lesion, recommend ultras ound as an initial further evaluation to assess for cystic versus solid lesion. Pre and postcontrast MR could also be considered as the most sensitive imaging evaluation for solid mass. Severe cortical thinning of the right kidney suggest chronic hydronephrosis. Multiple left renal cysts, as noted above. Urinary bladder diverticulum, as detailed above. Reviewed, dictated and finalized at location M. [facility] Impression: 1.6 x 1.1 cm proximal right ureteral stone, as detailed above, with associated severe right hydroureteronephrosis up to the level the stone. 6.2 cm right upper pole hyperdense cyst versus solid mass. Given size of the le timo, recommend ultrasound as an initial further evaluation to assess for cysti c versus solid lesion. Pre and postcontrast MR could also be considered as the most sensitive imaging evaluation for solid mass. Severe cortical thinning of the right kidney suggest chronic hydronephrosis. Multiple left renal cysts, as noted above. Urinary bladder diverticulum, as detailed above.
== END 2022-07-27 15:44 | disposition home or self-care (01) ==
PROVIDERS: PCP Physician Assistant; Visit Provider Urology
DX: R31.29 Other microscopic hematuria (principal); N28.1 Cyst of kidney, acquired; N20.1 Calculus of ureter
CPT/HCPCS: 74176

== ENCOUNTER 2022-08-17 12:45 | Outpatient (CLI) | payer MEDICARE, SELFPAY ==
--- NOTE | ~2022-08-17 | US_ITS ---
EXAMINATION: US renal BI DATE: 08/17/2022 13:24 INDICATION: Disorder kidneys and ureters TECHNIQUE: Multiple ultrasound grayscale images of the kidneys were obtained. COMPARISON: CT dated 07/27/2022 and MRI dated 06/28/2020 FINDINGS: The right kidney measures 13.2 x 5.1 x 8.6 cm. The left kidney measures 17.9 x 7.5 x 8.9 cm. There is severe right hydronephrosis with severe parenchymal atrophy of the right kidney.. There are multiple simple appearing bilateral anechoic renal cysts the largest on the left measuring 7.1 cm. These incl ude a 5.5 cm anechoic cyst at the upper pole of the right kidney corresponding to the complex cyst of concern evident on prior CT. Normal cortical echogenicity and no hydronephrosis at the left kidney. Shadowing calcification at the left kidney corresponding catheter is chronic calcific lesions on prio r CT. There is a diverticulum at the right posterior aspect of the otherwise normal bladder.. IMPRESSION: 1. Severe right renal atrophy with chronic severe hydronephrosis. 2. Multiple bilateral anechoic renal cysts including the complex hyperdense cyst seen at the upper po le the right kidney on prior CT. 3. Right posterior bladder diverticulum. Reviewed, dictated and finalized at location A. [facility] IMPRESSION: 1. Severe right renal atrophy with chronic severe hydronephrosis. 2. Multiple bilateral anechoic renal cysts including the complex hyperdense cys t seen at the upper pole the right kidney on prior CT. 3. Right posterior bladder diverticulum.
== END 2022-08-17 12:46 | disposition home or self-care (01) ==
LOC: ANHIMG 12:47
PROVIDERS: PCP Physician Assistant; Visit Provider Urology
DX: N28.89 Other specified disorders of kidney and ureter (principal); N26.1 Atrophy of kidney (terminal); N28.1 Cyst of kidney, acquired; N32.3 Diverticulum of bladder
CPT/HCPCS: 76775

== ENCOUNTER 2023-11-25 13:29 | Outpatient (CLI) | payer MEDICARE, SELFPAY ==
--- NOTE | ~2023-11-25 | CT_ITS ---
EXAMINATION: CT abdomen pelvis wo con DATE: 11/25/2023 13:50 INDICATION: Right ureteral stone. TECHNIQUE: Computed tomography (CT) of the abdomen and pelvis was performed without intravenous contr ast. Automated exposure control and iterative reconstruction technique were employed. The dose-length product was 886.85 mGy-cm. COMPARISON: CT abdomen and pelvis 07/27/2022 FINDINGS: The visualized portions of the lung bases demonstrate mild atelectasis and mild chronic bk g disease including mild bronchiectasis. No pleural effusion. The heart size is normal. There are cor onary artery calcifications. No pericardial effusion. Median sternotomy wires are noted. The liver de monstrates pneumobilia, likely secondary sphincterotomy. There are changes of cholecystectomy. The sp brenda is normal. There are calcifications in the pancreas, consistent with chronic pancreatitis. The a drenal glands are normal. There is severe atrophy of right kidney. There are cysts in the kidneys maria g suring up to 7.3 cm on the left. There are masses in the kidneys measuring soft tissue attenuation me asuring up to 3.8 cm on the right. There is severe right hydronephrosis. There is a 16 mm stone at ri t ureteropelvic junction. There is a right posterior bladder diverticulum. The prostate is mildly e nlarged. There is diverticulosis of the colon without evidence of diverticulitis. The appendix is nor mal. There are no dilated loops of bowel. There is calcified atherosclerosis of the aorta and many of the other arteries. There is a stent in the infrarenal aorta. There are no pathologically enlarged l ymph nodes. There is no free intraperitoneal fluid. There is a right inguinal hernia containing fat. There is severe lumbar spondylosis. There are bridging endplate osteophytes at multiple levels in the spine, consistent with diffuse idiopathic skeletal hyperostosis (DISH). IMPRESSION: 1. 16 mm stone at right ureteropelvic junction. Severe right hydronephrosis. See right kidney atrophy . 2. Bilateral kidney masses measuring up to 3.8 cm on the right, which may be hemorrhagic cysts and/or neoplasms. Abdomen MRI without and with contrast is recommended. Reviewed, dictated and finalized at location E. IMPRESSION: 1. 16 mm stone at right ureteropelvic junction. Severe right hydronephrosis. Se e right kidney atrophy. 2. Bilateral kidney masses measuring up to 3.8 cm on the right, which may be he morrhagic cysts and/or neoplasms. Abdomen MRI without and with contrast is bridget mmended.
== END 2023-11-25 13:30 ==
PROVIDERS: PCP Physician Assistant; Visit Provider Urology
DX: N13.2 Hydronephrosis with renal and ureteral calculous obstruction (principal); N26.1 Atrophy of kidney (terminal); N28.89 Other specified disorders of kidney and ureter
CPT/HCPCS: 74176

== ENCOUNTER 2023-12-04 18:24 | Emergency (ER) | payer MEDICARE, SELFPAY ==
--- NOTE | ~2023-12-04 | XR_ITS ---
EXAMINATION: XR chest 1V portable Exam Date/Time: 12/04/2023 18:45 CDT HISTORY: AMS Comparison: 05/31/2016. RESULT: Lines, tubes, and devices: Intact sternotomy wires. Mediastinal surgical clips. Lungs and pleura: Clear. Cardiomediastinal silhouette: Stable. Other: No acute osseous or upper abdominal finding. IMPRESSION: No acute cardiopulmonary process. Reviewed, dictated and finalized at location K.
--- NOTE | ~2023-12-04 | CT_ITS ---
EXAMINATION: CT brain wo con DATE: 12/04/2023 19:00 INDICATION: AMS . TECHNIQUE: Computed tomography (CT) of the head was performed 05/30/2016 intravenous contrast. The mA was adjusted according to patient size. Iterative reconstruction technique was employed. The dose-le ngth product was 605.33 mGy-cm. COMPARISON: None. FINDINGS: No acute intracranial hemorrhage or extra-axial fluid collection. No hydrocephalus, mass, or herniation. No acute ischemic infarct. Unremarkable dural venous sinus attenuation. No acute osseous abnormality. Aerated secretions in the left sphenoid, the remaining aerated spaces are clear. Moderate atrophy and chronic white matter change. Atherosclerotic intracranial calcification. Bilater al lens replacements. Bilateral basal ganglia calcification. IMPRESSION: No acute intracranial process. Reviewed, dictated and finalized at location K.
[2023-12-04 18:25] VITALS: BP 150/107; PULSE 80; RESP 18; TEMP 36.6; O2SAT 98
--- NOTE | 2023-12-04 18:55 | ED.AMS ---
HPI - Altered Mental Status General Chief Complaint: Altered Mental Status Stated Complaint: CONFUSION X2 DAYS Time Seen by Provider: 12/04/23 18:39 History of Present Illness HPI narrative: Patient is an 88-year-old male who presents to the emergency department this evening accompanied by family members due to concern for altered mental status. Daughter who is currently present at bedside states that the patient does seem to be a bit more confused today and admits that this has happened in the past when he has had a urinary tract infection. Patient recently had a cystoscopy done at his urologist's office. Patient is currently denying any symptoms or concerns at this. He is alert oriented to person, place, and situation, he is disoriented to time. Patient is also unable to recall who our current president is. Otherwise, he is following all my commands appropriately and answering all my questions. Daughter states that the patient may have had a fall, although he denies hitting his head, when he was he was sitting upright on the floor and informed them that he slid off of the couch. No additional symptoms or concerns at this time. Related Data Home Medications Medication Instructions Recorded Confirmed aspirin 81 mg tablet,delayed 81 mg PO DAILY 02/17/20 08/29/21 release (Adult Low Dose Aspirin) rivaroxaban 2.5 mg tablet (Xarelto) 2.5 mg PO BID 06/20/20 08/29/21 losartan 100 1 tablet PO QAM 06/30/20 08/29/21 mg-hydrochlorothiazide 12.5 mg tablet multivit with minerals-iron 18 1 tablet PO DAILY 06/30/20 08/29/21 mg-folic ac 400 mcg-vit K 25 mcg tablet (Adults Multivitamin) cholecalciferol (vitamin D3) 50 50 mcg PO BID 07/04/20 08/29/21 mcg (2,000 unit) tablet (Vitamin D3) omeprazole magnesium 20 mg 20 mg PO DAILY PRN Indigestion 07/04/20 08/29/21 tablet,delayed release (Prilosec OTC) sitagliptin phosphate 25 mg tablet 25 mg PO DAILY 01/17/21 08/29/21 (Januvia) [place] 3 Fish Oil 1 cap PO BID 08/21/21 08/29/21 Vitamin D Synergy 50 mcg PO DAILY 08/21/21 08/29/21 atorvastatin 40 mg tablet 40 mg PO DAILY 08/21/21 08/29/21 cyanocobalamin (vitamin B-12) 500 500 mcg PO DAILY 08/21/21 08/29/21 mcg tablet (Vitamin B-12) zinc gluconate 50 mg tablet 50 mg PO DAILY 08/21/21 08/29/21 Allergies Allergy/AdvReac Type Severity Reaction Status Date / Time No Known Allergies Allergy Verified 08/29/21 07:24 Review of Systems Review of Systems: All systems are reviewed and are negative unless stated otherwise in the HPI. [facility] Past Medical History Medical History Adenomatous colon polyp CAD (coronary artery disease) Diabetes Elevated liver enzymes High cholesterol Hypertension PVD (peripheral vascular disease) Surgical History Surgical History 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 Hx laparoscopic cholecystectomy S/P hernia surgery umbilical S/P trigger finger release Family History Family History Other Family history of heart disease in male family member before age 55 Family history of malignant neoplasm Family history of tuberculosis Social History Social History Smoking packs per day: 2 Smoking cigarettes per day: 40.0 Years smoked: 57 Smoking pack-years: 114.00 Smoking status: Former smoker Tobacco type: cigarettes Smoking end date: 12/08/09 Additional smoking assessment comments: SMOKED 2 PKS/DAY FOR APPROX 15YRS Alcohol intake: current Substance use: never Substance use type: does not use Living arrangements: with family Additional living arrangements comments: Occupation/Education: retired Gender identity (if verbalized by the patient): Male Spiritual care concerns: No Exam Narrative: General: Alert,
[2023-12-04 19:33] LABS: Hematocrit 36.4 % (42.0-52.0); Hemoglobin 12.1 g/dL (14.0-18.0); Mean Corpuscular HGB Conc 33.2 g/dl (32-36); Mean Corpuscular Hemoglobin 29.9 pg (26-34); Mean Corpuscular Volume 89.9 fl (80-100); Mean Platelet Volume 10.1 fl (7.4-10.4); Platelet Count Result 144 k/mm3 (150-375); Red Blood Count 4.05 M/mm3 (4.6-6.20); Red Cell Distribution Width 14.3 % (11.5-14.5); White Blood Count 3.7 K/mm3 (4.5-10.0)
[2023-12-04 19:37] VITALS: BP 98/77; PULSE 85; RESP 20; O2SAT 96
[2023-12-04 19:43] LABS: Alanine Aminotransferase 48 U/L (6-50); Alkaline Phosphatase 164 U/L (38-126); Anion Gap 3 mmol/L (4-12); Aspartate Amino Transferase 59 U/L (17-59); Bilirubin,Total 0.7 mg/dL (0.2-1.3); Blood Urea Nitrogen 45 mg/dL (9-20); Calcium 8.4 mg/dL (8.4-10.2); Carbon Dioxide 22 mmol/L (22-30); Chloride 106 mmol/L (98-107); Estimated CRCL calculation 21 ml/min; Estimated Glomerular Filt Rate 28; Glucose 180 mg/dL (65-110); Magnesium 2.2 mg/dL (1.6-2.3); Potassium 4.9 mmol/L (3.4-5.0); Sodium 131 mmol/L (137-145)
[2023-12-04 19:59] LABS: Band Neutrophils Percent 9 % (0-6); Lymphocytes Absolute Manual 0.62 K/mm3 (1.1-4.5); Monocytes Absolute Manual 0.33 K/mm3 (0.1-0.90); Monocytes Percent Manual 9 % (3-9); Neutrophils Absolute Manual 2.73 K/mm3 (1.3-6.7); Neutrophils Percent Manual 65 % (46-73); Platelet Estimate Slightly Decreased (Adequate); Schistocytes None Seen; Total Cells Counted 100
[2023-12-04 20:19] LABS: Appearance Urine Cloudy (Clear); Bacteria Urine Rare /hpf; Bilirubin Urine Negative (Negative); Blood Urine 3+ (Negative); Color Urine Yellow (Yellow); Glucose Urine UA Trace mg/dL (Negative); Ketones Urine Negative (Negative); Leukocyte Esterase Ur 1+ LEU/UL (Negative); Nitrate Urine Negative (Negative); Protein Urine 3+ mg/dL (Negative); RBC Urine 51-100 /hpf (0-2); Specific Grav Ur 1.014 (1.001-1.035); Squamous Epithelial Cell Urine None Seen /hpf (Few); WBC Urine >100 /hpf (0-3); pH Urine 5.5 (5.0-9.0)
[2023-12-04 20:25] LABS: Add Urine Microscopic? YES
[2023-12-04 21:20] VITALS: BP 151/46; PULSE 75; RESP 17; O2SAT 96
== END 2023-12-04 21:20 | disposition home or self-care (01) ==
PROVIDERS: Emergency Provider Emergency Medicine; PCP Physician Assistant
DX: N39.0 Urinary tract infection, site not specified (principal); R41.0 Disorientation, unspecified; I25.10 Atherosclerotic heart disease of native coronary artery without angina pectoris; I10 Essential (primary) hypertension; E11.51 Type 2 diabetes mellitus with diabetic peripheral angiopathy without gangrene; I73.9 Peripheral vascular disease, unspecified; E78.00 Pure hypercholesterolemia, unspecified; Z95.1 Presence of aortocoronary bypass graft; Z87.891 Personal history of nicotine dependence; Z86.010 Personal history of colon polyps; Z90.49 Acquired absence of other specified parts of digestive tract; Z79.82 Long term (current) use of aspirin; Z79.01 Long term (current) use of anticoagulants; Z79.84 Long term (current) use of oral hypoglycemic drugs
CPT/HCPCS: 36415; 70450; 71045; 80053; 81001; 83735; 85025; 87077; 87086; 87088; 87181; 96365; 99284; J0696

== ENCOUNTER 2023-12-20 09:33 | Inpatient (IN) | payer MEDICARE, SELFPAY ==
[2023-12-20] VITALS (22 sets, daily range): BP systolic 112–153; BP diastolic 49–77; PULSE 80–90; RESP 16–24; TEMP 36.4–36.7; O2SAT 94–99
--- NOTE | ~2023-12-20 | CT_ITS ---
CT head without contrast Indication: Confusion COMPARISON: 11/14/2023 Technique: Serial scans were obtained through the brain without the administration of contrast. Dose reduction technique was used on this scan by utilizing automated exposure control and iterative recon struction technique. The dose-length product (DLP) was 681.00 mGy-cm. Findings: There is no evidence of intracranial hemorrhage, mass lesion, or acute infarct. The ventri cles and subarachnoid spaces are dilated, consistent with mild atrophy. Low attenuation regions are seen within the periventricular white matter bilaterally, likely representing changes from chronic mi crovascular ischemic disease. There is no evidence of edema, mass effect or midline shift. The visu alized paranasal sinuses and mastoid air cells are clear. Impression: No intracranial hemorrhage, mass, or acute infarct. Atrophy and chronic white matter changes, as above. Reviewed, dictated and finalized at location . Impression: No intracranial hemorrhage, mass, or acute infarct. Atrophy and chronic white matter changes, as above.
--- NOTE | ~2023-12-20 | CT_ITS ---
Non-contrast CT scan of the Abdomen and Pelvis Clinical indication: Abdominal pain Technique: 2.5 mm axial scans were obtained through the abdomen and pelvis without intravenous or or al contrast. Dose reduction technique was used on this scan by utilizing automated exposure control a nd iterative reconstruction technique. The dose-length product (DLP) was 1041.28 mGy-cm. COMPARISON: 11/25/2023 Findings: Images through the lung bases reveal mild bibasilar chronic interstitial change. 1.7 x 1.2 cm proximal right ureteral stone is unchanged, as is marked, severe right hydronephrosis an d marked, diffuse right renal cortical thinning. Additional right renal cysts are unchanged. Multiple left renal cysts are similar to prior exam. The liver, spleen, pancreas, and adrenals appear normal. Cholecystectomy clips noted. There is extens beni atherosclerotic calcification of the aorta with a suspected aortic endovascular stent present. There is no evidence of bowel obstruction. Images through the pelvis were performed. There is no evidence of ascites or lymphadenopathy. Stable posterior right-sided urinary bladder diverticulum. Mildly enlarged prostate gland. Small fat-contain ing right inguinal hernia present. Impression: No acute abnormality. No definite change from prior exam. Stable marked, severe right hydronephrosis and right cortical thinning, with stable obstructing 1.7 x 1.2 cm proximal right ureteral stone. Additional chronic findings, as above. Reviewed, dictated and finalized at location . Impression: No acute abnormality. No definite change from prior exam. Stable marked, severe right hydronephrosis and right cortical thinning, with stable obstructing 1.7 x 1.2 cm proximal right ureteral stone. Additional chronic findings, as above.
--- NOTE | ~2023-12-20 | XR_ITS ---
Portable chest x-ray Comparison: 12/04/2023 Clinical History: Cough Findings: Lungs are clear, without focal consolidation or pleural effusion. Cardiomediastinal silho uette is stable, status post CABG. Bones and soft tissues are unremarkable. Impression: Clear lungs. Reviewed, dictated and finalized at location . Impression: Clear lungs.
--- NOTE | 2023-12-20 09:56 | ECG_ITS ---
Test Date: 2023-12-20 10:00:17 Measurements Intervals [place] Rate: P: 0 MN: 0 QRS: 0 QRSD: 0 T: 0 QT: 0 QTc: 0 Interpretive Statements SINUS RHYTHM WITH FIRST DEGREE AV BLOCK DELAYED PRECORDIAL R/S TRANSITION LEFT VENTRICULAR HYPERTROPHYITH ST-T CHANGE CONSIDER ANTERIOR INFARCT, AGE INDETERMINATE BASELINE ARTIFACT- I, II, III, AVR, AVL, AVF, V5 ABNORMAL ECG No previous ECG available for comparison Electronically Signed On 12-20-2023 12:49:01 CDT by Romain Ocampo D.O.
[2023-12-20 10:18] LABS: Basophils Percent Auto 0.1 % (0.2-1.2); Hematocrit 33.1 % (42.0-52.0); Immature Granulocyte Absolute 0.08 K/mm3 (0.00-0.031); Lymphocytes Absolute Auto 0.63 K/mm3 (0.9-3.2); Lymphocytes Percent Auto 7.5 % (18.3-44.2); Mean Corpuscular HGB Conc 33.2 g/dl (32-36); Mean Corpuscular Hemoglobin 29.3 pg (26-34); Mean Corpuscular Volume 88.3 fl (80-100); Mean Platelet Volume 9.2 fl (7.4-10.4); Monocytes Absolute Auto 0.5 K/mm3 (0.1-0.6); Monocytes Percent Auto 6.1 % (2.6-8.5); Neutrophils Absolute Auto 7.1 K/mm3 (1.3-6.7); Neutrophils Percent Auto 85.3 % (45.5-73.1); Platelet Count Result 502 k/mm3 (150-375); Red Blood Count 3.75 M/mm3 (4.6-6.20); White Blood Count 8.4 K/mm3 (4.5-10.0)
[2023-12-20 10:31] LABS: Alanine Aminotransferase 103 U/L (6-50); Albumin Level 2.9 g/dL (3.5-5.1); Alkaline Phosphatase 355 U/L (38-126); Anion Gap 9 mmol/L (4-12); Aspartate Amino Transferase 67 U/L (17-59); Bilirubin,Total 0.5 mg/dL (0.2-1.3); Blood Urea Nitrogen 61 mg/dL (9-20); Calcium 8.5 mg/dL (8.4-10.2); Carbon Dioxide 28 mmol/L (22-30); Chloride 93 mmol/L (98-107); Estimated CRCL calculation 25 ml/min; Estimated Glomerular Filt Rate 36; Glucose 254 mg/dL (65-110); Lipase 297 U/L (23-300); Potassium 4.8 mmol/L (3.4-5.0); Sodium 130 mmol/L (137-145)
[2023-12-20 10:41] LABS: Troponin I < 0.012 ng/mL (0.000-0.034)
--- NOTE | 2023-12-20 11:35 | ED.GENADULT ---
HPI - General Adult General Chief complaint: Nausea/Vomiting/Diarrhea Stated complaint: vomiting, recent UTI Time Seen by Provider: 12/20/23 10:40 History of Present Illness HPI narrative: Byron Ovalle is an 88 y/o male who presents today with his daughter for nausea/vomiting that started off and on for two weeks then consistent all night last night. Daughter states that he was here for altered mental status 2 weeks and 3 days ago, he was found to have a UTI and d/c home on Keflex. Since being home he has had some continued confusion/ intermittent nausea/vomiting - daughter believes he has kept his antibiotics down except for last night and this morning because last night his vomiting was consistent and more so all night She states that he was having the confusion and not feeling better so she took him to an UC 3 days ago and was restarted on PO kefex Patient is oriented to self/ place / unsure of year, unsure of month - give vague answer for situational He denies any pain Related Data Home Medications Medication Instructions Recorded Confirmed aspirin 81 mg tablet,delayed 81 mg PO DAILY 02/17/20 12/20/23 release (Adult Low Dose Aspirin) rivaroxaban 2.5 mg tablet (Xarelto) 2.5 mg PO BID 06/20/20 12/20/23 multivit with minerals-iron 18 1 tablet PO DAILY 06/30/20 12/20/23 mg-folic ac 400 mcg-vit K 25 mcg tablet (Adults Multivitamin) cholecalciferol (vitamin D3) 50 50 mcg PO BID 07/04/20 12/20/23 mcg (2,000 unit) tablet (Vitamin D3) sitagliptin phosphate 25 mg tablet 25 mg PO DAILY 01/17/21 12/20/23 (Januvia) [place] 3 Fish Oil 1 cap PO BID 08/21/21 12/20/23 Vitamin D Synergy 50 mcg PO DAILY 08/21/21 12/20/23 atorvastatin 40 mg tablet 40 mg PO DAILY 08/21/21 12/20/23 cyanocobalamin (vitamin B-12) 500 500 mcg PO DAILY 08/21/21 12/20/23 mcg tablet (Vitamin B-12) zinc gluconate 50 mg tablet 50 mg PO DAILY 08/21/21 12/20/23 carvedilol 12.5 mg tablet 12.5 mg PO BID 12/20/23 12/20/23 duloxetine 30 mg capsule,delayed 30 mg PO DAILY 12/20/23 12/20/23 release finasteride 5 mg tablet 5 mg PO DAILY 12/20/23 12/20/23 Allergies Allergy/AdvReac Type Severity Reaction Status Date / Time No Known Allergies Allergy Verified 12/20/23 10:57 Review of Systems Review of Systems: CONSTITUTIONAL: Denies fever, chills, or sweats. EYES: Denies visual changes, redness, or discharge. ENT: Denies rhinorrhea, congestion, sore throat, or otalgia. CARDIOVASCULAR: Denies chest pain, palpitations, or edema. RESPIRATORY: Denies cough or dyspnea. GASTROINTESTINAL: Denies abdominal pain Complains of Nausea vomiting for 2 weeks off and on much worse last night GENITOURINARY: Denies dysuria or hematuria. SKIN: Denies rash or itching. MUSCULOSKELETAL: Denies back pain, joint pain, or myalgia. NEUROLOGIC: Denies headache, numbness, dizziness, or weakness. PSYCHIATRIC: Denies anxiety or depression. [facility] Past Medical History Medical History Adenomatous colon polyp CAD (coronary artery disease) Diabetes Elevated liver enzymes High cholesterol Hypertension PVD (peripheral vascular disease) Surgical History Surgical History 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 Hx laparoscopic cholecystectomy S/P hernia surgery umbilical S/P trigger finger release Family History Family History Other Family history of heart disease in male family member before age 55 Family history of malignant neoplasm Family history of tuberculosis Social History Social History Smoking packs per day: 2 Smoking cigarettes per day: 40.0 Years smoked: 57 Smoking pack-years: 114.00 Smoking status: Former smoker Additional smoking assessment comments: SMOKED 2 PKS/DAY FOR APPROX 15YRS Alcohol intake: never Substance use: nev
[2023-12-20] MEDS: ONDANSETRON INJ 4 MG/2 ML VIAL IV PUSH (11:55)
[2023-12-20] MEDS: SODIUM CHLORIDE 0.9% IV 1,000 ML 999 ML IV CONT (11:55)
[2023-12-20] MEDS: FAMOTIDINE 20 MG/2 ML VIAL IV PUSH (11:56)
[2023-12-20 13:36] LABS: Appearance Urine Turbid (Clear); Bacteria Urine 1+ /hpf; Bilirubin Urine Negative (Negative); Blood Urine 3+ (Negative); Color Urine Yellow (Yellow); Glucose Urine UA 2+ mg/dL (Negative); Ketones Urine Negative (Negative); Leukocyte Esterase Ur 2+ LEU/UL (Negative); Need Manual Microscopic Reviewed; Nitrate Urine Negative (Negative); Protein Urine 3+ mg/dL (Negative); Specific Grav Ur 1.019 (1.001-1.035); Squamous Epithelial Cell Urine None Seen /hpf (Few); WBC Urine >100 /hpf (0-3); pH Urine 5.5 (5.0-9.0)
[2023-12-20 13:40] LABS: Add Urine Microscopic? YES
--- NOTE | 2023-12-20 15:03 | WPDURCON ---
Assessment and Plan Assessment and plan (1) Abnormal urinalysis: Code(s): R82.90 - Unspecified abnormal findings in urine Status: Acute Assessment and Plan: UA abnormal, urine culture pending at this time. Urine culture was collected in the office yesterday, 12/19/2023 as well. Patient has been on Keflex, therefore may alter results of urine culture. Continue empiric antibiotics at this time while awaiting culture results. Patient noted to have frequent UTIs. May consider low-dose suppressive antibiotics. 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 No indication for urologic intervention given chronic right ureteral obstruction and subsequent renal atrophy. 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 The patient was seen in the office yesterday due to concerns of UTI. He had been taking Keflex which was started a few days prior during an urgent care visit. At yesterday's visit, he had no particular urinary symptoms but complained of weakness and poor appetite. His UA was relatively unremarkable aside from 2+ blood. He then presented to the ER today due to nausea and vomiting, confusion, and overall feeling unwell. On arrival, he was afebrile, his vital signs were stable, white blood cell count within normal limits at 8.4, creatinine 1.8 (consistent with baseline), UA with 2+ leukocytes, negative nitrites, >[address] of the abdomen/pelvis was completed which showed a proximal right ureteral stone which is unchanged with marked severe right hydronephrosis and right renal atrophy, as well as unchanged bilateral renal cysts. At the time my evaluation, the patient is feeling fair. His son is present at the bedside and reports he has been slightly confused. 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 Hx laparoscopic cholecystectomy S/P hernia surgery umbilical S/P trigger finger release Family History Family History Other Family history of heart disease in male family member before age 55 Family history of malignant neoplasm Family history of tuberculosis Social History Social History Smoking packs per day: 2 Smoking cigarettes per day: 40.0 Years smoked: 57 Smoking pack-years: 114.00 Smoking status: Former smoker Tobacco type: cigarettes Smoking end date: 12/08/09 Additional smoking assessment comments: SMOKED 2 PKS/DAY FOR APPROX 15YRS Alcohol intake: current Substance use: never Substance use type: does not use Living arrangements: with family Additional living arrangements comments: Occupation/Education: retired Gender identity (if verbalized by the patient): Male Spiritual care concerns: No Meds Home Medications and Allergies Home Medications Medicati
--- NOTE | 2023-12-20 16:57 | ADMGEN ---
This patient, Byron Ovalle, was admitted to [facility] Surg Room 317-02. Patient/family oriented to hospital policies and general routines including ID bracelet, bed and alarms, visiting hours, pain management, procedures, bathroom and other care routines, personal items, smoking policy, room service/diet, and visiting hours. Information on how to activate the Rapid Response Team has been discussed. Patient/Family are encouraged to report perceived risks to care and to ask questions if they do not understand what they are told or what they should do.
--- NOTE | 2023-12-20 19:48 | PM.IMHP ---
H&P: HPI History of Present Illness Date/Time: 12/20/23 19:48 Chief Complaint: Decreased Appetite, Vomiting Narrative: 89 y/o M presents here with decreased appetite and vomiting with PMH of CAD, DM, high cholesterol, HTN, elevated liver enzymes, and PVD. The patient presents here from home for further evaluation of nausea, vomiting, lack of appetite, and confusion. Patient unable to contribute much to history. called for collateral information with patient's permission. Patient was recently seen here at [place] [facility] on 12/04/2023. Presented altered, acting bizarre, and talking out of the blue . Found to have a UTI. Per he improved within 24-48 hours after the abx were started. He was discharged with Cephalexin 500 mg q.6 hours x7 days on 12/04/2023. Completed abx course 2-3 days prior to development of increased confusion and general malaise. Family then took the patient to a local Urgent Care. There he was prescribed Cephalexin 500 mg q.6 hours x10 days on 12/15. more concerned because the patient's appetite is diminished, having more difficulty getting up with his walker, and generally not improving. The patient is endorsing new onset of dark tarry stools today. Last BM today. has not noted dark tarry stools, did possibly see a small amount of dark blood on TP post-BM, and has been going with him to the restroom. Patient denies abdominal pain, nausea, vomiting, diarrhea, chest pain, shortness of breath, cough, rhinorrhea. Endorsing poor appetite and dry throat since yesterday. also has noted that over the last 5-6 months the patient has had a general decline in his memory. Initial VS at presentation: 97.6? F, HR 89, RR 16, 112/49, and 98% on RA. ED workup showed: No leukocytosis, hemoglobin 11, platelet count 502, sodium 130, creatinine 1.8 and GFR 36, glucose 254, mild bump in LFTs, initial troponin negative, lipase 297, and UA consistent with UTI. CT head showed chronic findings, no acute hemorrhage/mass/infarct. CT of the abdomen/pelvis showed no acute abnormality, stable marked severe right hydronephrosis and right cortical thinning with stable obstructing proximal right ureteral stone. CXR showed clear lungs. 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 Hx laparoscopic cholecystectomy S/P hernia surgery umbilical S/P trigger finger release Family History Family History Other Family history of heart disease in male family member before age 55 Family history of malignant neoplasm Family history of tuberculosis Social History Social History Smoking packs per day: 2 Smoking cigarettes per day: 40.0 Years smoked: 57 Smoking pack-years: 114.00 Smoking status: Former smoker Additional smoking assessment comments: SMOKED 2 PKS/DAY FOR APPROX 15YRS Alcohol intake: never Substance use: never Substance use type: does not use Do You Feel Safe in your Home?: Yes Lack of Transportation: No Lack of Food: Never True Current Housing: I Have Housing Concerned About Future Housing: No Difficulty Paying Gas/Electric Bills: No Difficulty Paying for Meds: No Currently Unemployed: No Education: High School Diploma/GED Difficulty w/ Childcare or Family Care: No Living arrangements: with family Additional living arrangements comments: [place]
[2023-12-20 20:48] LABS: Glucose Point of Care 224 mg/dl (65-105)
[2023-12-20] MEDS: RIVAROXABAN 2.5 MG TABLET PO (22:48)
[2023-12-20] MEDS: SODIUM CHLORIDE 0.9% IV 1,000 ML 100 ML IV CONT (22:48)
[2023-12-20] MEDS: carvediloL 12.5 MG TABLET PO (22:48)
[2023-12-21 01:11] LABS: Influenza A QL RT-PCR Negative (Negative); Influenza B QL RT-PCR Negative (Negative); RSV RNA, RT-PCR Negative (Negative); SARS-CoV-2 RNA PCR Negative (Negative)
[2023-12-21 06:00] VITALS: BP 125/54; PULSE 78; RESP 20; TEMP 36.6; O2SAT 96
[2023-12-21 07:48] LABS: Glucose Point of Care 163 mg/dl (65-105)
[2023-12-21 08:02] VITALS: PULSE 78
[2023-12-21] MEDS: ASPIRIN 81 MG ENTERIC TABLET PO (08:02)
[2023-12-21] MEDS: MULTIVITAMINS /C LUTEIN (CENTRUM SILVER) TABLET *BKC 1 TAB PO (08:02)
[2023-12-21] MEDS: carvediloL 12.5 MG TABLET PO ×2 (08:02→20:47)
[2023-12-21] MEDS: ATORVASTATIN 40 MG TABLET PO (08:02)
[2023-12-21] MEDS: FINASTERIDE 5 MG TABLET PO (08:02)
[2023-12-21] MEDS: CYANOCOBALAMIN 500 MCG TABLET PO (08:02)
[2023-12-21] MEDS: CHOLECALCIFEROL 1,000 UNITS TABLET 2000 UNITS PO ×2 (08:02→16:16)
[2023-12-21] MEDS: DULoxetine HCL 30 MG CAPSULE.DR PO (08:02)
[2023-12-21] MEDS: SITagliptin PHOSPHATE 25 MG TABLET PO (08:03)
[2023-12-21] MEDS: RIVAROXABAN 2.5 MG TABLET PO ×2 (08:03→20:47)
[2023-12-21] MEDS: ZINC SULFATE 220 MG CAPSULE PO (08:03)
[2023-12-21 08:14] LABS: Basophils Percent Auto 0.2 % (0.2-1.2); Eosinophils Percent Auto 0.4 % (0-4.4); Hematocrit 28.6 % (42.0-52.0); Hemoglobin 9.2 g/dL (14.0-18.0); Immature Granulocyte Absolute 0.06 K/mm3 (0.00-0.031); Immature Granulocyte Percent A 1.1 % (0-0.5); Lymphocytes Percent Auto 13.1 % (18.3-44.2); Mean Corpuscular HGB Conc 32.2 g/dl (32-36); Mean Corpuscular Volume 90.2 fl (80-100); Mean Platelet Volume 9.1 fl (7.4-10.4); Monocytes Absolute Auto 0.6 K/mm3 (0.1-0.6); Monocytes Percent Auto 11.2 % (2.6-8.5); Platelet Count Result 389 k/mm3 (150-375); Red Blood Count 3.17 M/mm3 (4.6-6.20); Red Cell Distribution Width 14.2 % (11.5-14.5); White Blood Count 5.3 K/mm3 (4.5-10.0)
[2023-12-21 08:22] LABS: Anion Gap 7 mmol/L (4-12); Blood Urea Nitrogen 54 mg/dL (9-20); Calcium 7.9 mg/dL (8.4-10.2); Carbon Dioxide 25 mmol/L (22-30); Chloride 103 mmol/L (98-107); Estimated CRCL calculation 28 ml/min; Estimated Glomerular Filt Rate 41; Glucose 174 mg/dL (65-110); Magnesium 2.3 mg/dL (1.6-2.3); Phosphorus 3.1 mg/dL (2.5-4.5); Potassium 4.3 mmol/L (3.4-5.0); Sodium 135 mmol/L (137-145)
[2023-12-21 08:45] VITALS: O2SAT 94
--- NOTE | 2023-12-21 09:21 | PM.IMPN ---
Progress Note: A&P Assessment and Plan (1) AMS (altered mental status): Qualifiers: Altered mental status type: delirium Qualified Code(s): R41.0 - Disorientation, unspecified Code(s): R41.82 - Altered mental status, unspecified Status: Acute Assessment and Plan: - CT Head: No intracranial hemorrhage, mass, or acute infarct. Atrophy and chronic white matter changes, as above. - general cognitive decline over the last 5-6 months - suspect bizarre behavior and alteration secondary to UTI, treat underlying pathology. - neuro checks Q shift - TSH normal (2) Urinary tract infection: Qualifiers: Hematuria presence: with hematuria Urinary tract infection type: acute cystitis Qualified Code(s): N30.01 - Acute cystitis with hematuria Code(s): N39.0 - Urinary tract infection, site not specified Status: Acute Assessment and Plan: - UA: Turbid, 3+ protein, 2+ glucose, 3+ blood, 2+ leuks, 11-20 RBC, greater than 100 WBC, no epithelial cells, 1+ bacteria - UC pending, obtained on 12/19 - previous micro reviewed, one UC on file and showed coag neg staph rodriguez sensitive - started on Ceftriaxone on 12/19 - offered low-dose suppressive antibiotics, son at bedside at time of Urology evaluation. declined at this time due to concern he will have another infection to another part of his body and he will be resistant to treatment due to daily abx use. -blood cultures ordered -white blood cell count was normal on admission however he had been on antibiotics recently -procalcitonin ordered -suspect he may have a component of pyelonephritis given the abdominal pain and vomiting (3) Hydronephrosis: Qualifiers: Hydronephrosis type: with ureteral calculous obstruction Qualified Code(s): N13.2 - Hydronephrosis with renal and ureteral calculous obstruction Code(s): N13.30 - Unspecified hydronephrosis Status: Chronic Assessment and Plan: - CT abdomen/pelvis: No acute abnormality. No definite change from prior exam. Stable marked, severe right hydronephrosis and right cortical thinning, with stable obstructing 1.7 x 1.2 cm proximal right ureteral stone. Additional chronic findings, as above. - urology consulted, see note. no intervention given chronicity. - monitor renal function (4) Nausea: Code(s): R11.0 - Nausea Status: Acute Assessment and Plan: - CT abd/pelvis: no acute findings, some chronic findings, see note - add viral PCR - antiemetics prn - last BM today (12/19) (5) Diabetes: Qualifiers: Diabetes mellitus complication status: without complication Diabetes mellitus superintendent container terminal insulin use: without superintendent container terminal use Diabetes mellitus type: type 2 Qualified Code(s): E11.9 - Type 2 diabetes mellitus without complications Code(s): E11.9 - Type 2 diabetes mellitus without complications Status: Chronic Assessment and Plan: - hypoglycemia protocol - POC blood glucose ACHS - home medication: continue sitagliptin - correct regimen ordered - low dose TIDWM - A1C ordered (6) Hypertension: Qualifiers: Hypertension type: essential hypertension Qualified Code(s): I10 - Essential (primary) hypertension Code(s): I10 - Essential (primary) hypertension Status: Chronic Assessment and Plan: - chronic, currently 147/60 - continue home medications: carvedilol 12.5 mg b.i.d. - monitor Plan Patient here with on going confusion with new nausea and vomiting. Treated with cephalexin antibiotic course x2 for UTI without resolution. Started on ceftriaxone on 12/19 and urine culture pending. Urology consulted. Will give slow infusion of 1L NS. May need PT/OT evaluation and treatment once more improved. Family did not feel they could take care of him at home at this time. Diet: Diabetic GI Prophylaxis: Not currently indicated DVT Prophylaxis: Continue home Xarel
[2023-12-21 09:58] LABS: Hemoglobin A1C 8.4 % (<5.7)
[2023-12-21] MEDS: INSULIN ASPART (*BKC) 100 UNITS/ML SUB-Q (11:31)
[2023-12-21 11:53] LABS: Glucose Point of Care 211 mg/dl (65-105)
[2023-12-21 14:00] VITALS: BP 134/89; PULSE 69; RESP 20; TEMP 36.3; O2SAT 98
[2023-12-21 14:21] LABS: Procalcitonin 0.2 ng/mL
[2023-12-21 17:12] LABS: Glucose Point of Care 175 mg/dl (65-105)
[2023-12-21 20:31] LABS: Glucose Point of Care 214 mg/dl (65-105)
[2023-12-21 21:00] VITALS: BP 144/52; PULSE 85; RESP 20; TEMP 36.6; O2SAT 98
[2023-12-22 05:09] VITALS: BP 138/58; PULSE 66; RESP 18; TEMP 36.7; O2SAT 98
[2023-12-22 07:32] LABS: Glucose Point of Care 158 mg/dl (65-105)
--- NOTE | 2023-12-22 07:47 | PM.IMPN ---
Progress Note: A&P Assessment and Plan (1) AMS (altered mental status): Qualifiers: Altered mental status type: delirium Qualified Code(s): R41.0 - Disorientation, unspecified Code(s): R41.82 - Altered mental status, unspecified Status: Acute Assessment and Plan: - CT Head: No intracranial hemorrhage, mass, or acute infarct. Atrophy and chronic white matter changes, as above. - general cognitive decline over the last 5-6 months - suspect bizarre behavior and alteration secondary to UTI, treat underlying pathology. - neuro checks Q shift - TSH normal (2) Urinary tract infection: Qualifiers: Hematuria presence: with hematuria Urinary tract infection type: acute cystitis Qualified Code(s): N30.01 - Acute cystitis with hematuria Code(s): N39.0 - Urinary tract infection, site not specified Status: Acute Assessment and Plan: - UA: Turbid, 3+ protein, 2+ glucose, 3+ blood, 2+ leuks, 11-20 RBC, greater than 100 WBC, no epithelial cells, 1+ bacteria - UC pending, obtained on 12/19 - previous micro reviewed, one UC on file and showed coag neg staph rodriguez sensitive - started on Ceftriaxone on 12/19 - offered low-dose suppressive antibiotics, son at bedside at time of Urology evaluation. declined at this time due to concern he will have another infection to another part of his body and he will be resistant to treatment due to daily abx use. -blood cultures ordered and have no growth to date -white blood cell count was normal on admission however he had been on antibiotics recently -procalcitonin ordered--negative (3) Hydronephrosis: Qualifiers: Hydronephrosis type: with ureteral calculous obstruction Qualified Code(s): N13.2 - Hydronephrosis with renal and ureteral calculous obstruction Code(s): N13.30 - Unspecified hydronephrosis Status: Chronic Assessment and Plan: - CT abdomen/pelvis: No acute abnormality. No definite change from prior exam. Stable marked, severe right hydronephrosis and right cortical thinning, with stable obstructing 1.7 x 1.2 cm proximal right ureteral stone. Additional chronic findings, as above. - urology consulted, see note. no intervention given chronicity. - monitor renal function (4) Nausea: Code(s): R11.0 - Nausea Status: Acute Assessment and Plan: - CT abd/pelvis: no acute findings, some chronic findings, see note - add viral PCR - antiemetics prn - last BM today (12/19) -possibly viral gastroenteritis? (5) Diabetes: Qualifiers: Diabetes mellitus complication status: without complication Diabetes mellitus petroleum terminal plant operator insulin use: without petroleum terminal plant operator use Diabetes mellitus type: type 2 Qualified Code(s): E11.9 - Type 2 diabetes mellitus without complications Code(s): E11.9 - Type 2 diabetes mellitus without complications Status: Chronic Assessment and Plan: - hypoglycemia protocol - POC blood glucose ACHS - home medication: continue sitagliptin - correct regimen ordered - low dose TIDWM - A1C ordered (6) Hypertension: Qualifiers: Hypertension type: essential hypertension Qualified Code(s): I10 - Essential (primary) hypertension Code(s): I10 - Essential (primary) hypertension Status: Chronic Assessment and Plan: - chronic, currently 147/60 - continue home medications: carvedilol 12.5 mg b.i.d. - monitor Plan Patient here with on going confusion with new nausea and vomiting. Treated with cephalexin antibiotic course x2 for UTI without resolution. Started on ceftriaxone on 12/19 and urine culture pending. Urology consulted. Will give slow infusion of 1L NS. May need PT/OT evaluation and treatment once more improved. Family did not feel they could take care of him at home at this time. Diet: Diabetic GI Prophylaxis: Not currently indicated DVT Prophylaxis: Continue home Xarelto Lines: Perip
[2023-12-22 08:27] LABS: Basophils Percent Auto 0.4 % (0.2-1.2); Eosinophils Percent Auto 0.7 % (0-4.4); Hematocrit 31.5 % (42.0-52.0); Hemoglobin 10.2 g/dL (14.0-18.0); Immature Granulocyte Absolute 0.16 K/mm3 (0.00-0.031); Immature Granulocyte Percent A 2.9 % (0-0.5); Lymphocytes Absolute Auto 0.84 K/mm3 (0.9-3.2); Mean Corpuscular HGB Conc 32.4 g/dl (32-36); Mean Corpuscular Hemoglobin 29.3 pg (26-34); Mean Corpuscular Volume 90.5 fl (80-100); Mean Platelet Volume 8.9 fl (7.4-10.4); Monocytes Absolute Auto 0.5 K/mm3 (0.1-0.6); Monocytes Percent Auto 9.4 % (2.6-8.5); Neutrophils Percent Auto 71.6 % (45.5-73.1); Platelet Count Result 463 k/mm3 (150-375); Red Blood Count 3.48 M/mm3 (4.6-6.20); Red Cell Distribution Width 14.4 % (11.5-14.5); White Blood Count 5.6 K/mm3 (4.5-10.0)
[2023-12-22 08:40] LABS: Alanine Aminotransferase 113 U/L (6-50); Alkaline Phosphatase 237 U/L (38-126); Anion Gap 6 mmol/L (4-12); Aspartate Amino Transferase 80 U/L (17-59); Bilirubin,Total 0.4 mg/dL (0.2-1.3); Blood Urea Nitrogen 42 mg/dL (9-20); Calcium 8.4 mg/dL (8.4-10.2); Carbon Dioxide 27 mmol/L (22-30); Chloride 102 mmol/L (98-107); Estimated CRCL calculation 30 ml/min; Estimated Glomerular Filt Rate 44; Glucose 165 mg/dL (65-110); Potassium 4.6 mmol/L (3.4-5.0); Sodium 135 mmol/L (137-145)
[2023-12-22 09:15] VITALS: O2SAT 97
[2023-12-22] MEDS: SITagliptin PHOSPHATE 25 MG TABLET PO (09:36)
[2023-12-22] MEDS: FINASTERIDE 5 MG TABLET PO (09:36)
[2023-12-22] MEDS: CHOLECALCIFEROL 1,000 UNITS TABLET 2000 UNITS PO ×2 (09:36→17:28)
[2023-12-22] MEDS: ASPIRIN 81 MG ENTERIC TABLET PO (09:36)
[2023-12-22 09:37] VITALS: PULSE 81
[2023-12-22] MEDS: RIVAROXABAN 2.5 MG TABLET PO ×2 (09:37→21:14)
[2023-12-22] MEDS: carvediloL 12.5 MG TABLET PO ×2 (09:37→21:15)
[2023-12-22] MEDS: ZINC SULFATE 220 MG CAPSULE PO (09:37)
[2023-12-22] MEDS: CYANOCOBALAMIN 500 MCG TABLET PO (09:38)
[2023-12-22] MEDS: ATORVASTATIN 40 MG TABLET PO (09:38)
[2023-12-22] MEDS: DULoxetine HCL 30 MG CAPSULE.DR PO (09:38)
[2023-12-22] MEDS: MULTIVITAMINS /C LUTEIN (CENTRUM SILVER) TABLET *BKC 1 TAB PO (09:38)
[2023-12-22 12:54] LABS: Glucose Point of Care 229 mg/dl (65-105)
[2023-12-22] MEDS: INSULIN ASPART (*BKC) 100 UNITS/ML SUB-Q (13:07)
[2023-12-22 14:00] VITALS: BP 140/68; PULSE 68; RESP 18; TEMP 36.8; O2SAT 98
[2023-12-22 16:32] LABS: Glucose Point of Care 200 mg/dl (65-105)
[2023-12-22 20:40] VITALS: BP 147/57; PULSE 85; RESP 16; TEMP 36.4; O2SAT 98
[2023-12-22 21:15] VITALS: PULSE 85
[2023-12-22 21:29] LABS: Glucose Point of Care 211 mg/dl (65-105)
[2023-12-23 05:25] VITALS: BP 134/84; PULSE 106; RESP 20; TEMP 36.1; O2SAT 100
[2023-12-23 06:24] LABS: Basophils Percent Auto 0.5 % (0.2-1.2); Eosinophils Percent Auto 0.3 % (0-4.4); Hematocrit 28.8 % (42.0-52.0); Hemoglobin 9.4 g/dL (14.0-18.0); Immature Granulocyte Absolute 0.36 K/mm3 (0.00-0.031); Immature Granulocyte Percent A 4.1 % (0-0.5); Lymphocytes Absolute Auto 1.07 K/mm3 (0.9-3.2); Lymphocytes Percent Auto 12.3 % (18.3-44.2); Mean Corpuscular HGB Conc 32.6 g/dl (32-36); Mean Corpuscular Hemoglobin 29.7 pg (26-34); Mean Corpuscular Volume 91.1 fl (80-100); Mean Platelet Volume 9.2 fl (7.4-10.4); Monocytes Absolute Auto 0.9 K/mm3 (0.1-0.6); Monocytes Percent Auto 10.1 % (2.6-8.5); Neutrophils Absolute Auto 6.3 K/mm3 (1.3-6.7); Neutrophils Percent Auto 72.7 % (45.5-73.1); Platelet Count Result 527 k/mm3 (150-375); Red Blood Count 3.16 M/mm3 (4.6-6.20); White Blood Count 8.7 K/mm3 (4.5-10.0)
[2023-12-23 06:41] LABS: Alanine Aminotransferase 103 U/L (6-50); Alkaline Phosphatase 217 U/L (38-126); Anion Gap 9 mmol/L (4-12); Aspartate Amino Transferase 62 U/L (17-59); Bilirubin,Total 0.5 mg/dL (0.2-1.3); Blood Urea Nitrogen 48 mg/dL (9-20); Calcium 8.4 mg/dL (8.4-10.2); Carbon Dioxide 25 mmol/L (22-30); Chloride 100 mmol/L (98-107); Estimated CRCL calculation 28 ml/min; Estimated Glomerular Filt Rate 41; Glucose 225 mg/dL (65-110); Potassium 4.6 mmol/L (3.4-5.0); Sodium 134 mmol/L (137-145)
[2023-12-23 07:57] LABS: Glucose Point of Care 218 mg/dl (65-105)
[2023-12-23] MEDS: INSULIN ASPART (*BKC) 100 UNITS/ML SUB-Q ×2 (08:08→11:52)
[2023-12-23] MEDS: CYANOCOBALAMIN 500 MCG TABLET PO (08:12)
[2023-12-23] MEDS: DULoxetine HCL 30 MG CAPSULE.DR PO (08:12)
[2023-12-23] MEDS: RIVAROXABAN 2.5 MG TABLET PO (08:12)
[2023-12-23] MEDS: CHOLECALCIFEROL 1,000 UNITS TABLET 2000 UNITS PO (08:12)
[2023-12-23] MEDS: ZINC SULFATE 220 MG CAPSULE PO (08:12)
[2023-12-23 08:13] VITALS: PULSE 96
[2023-12-23] MEDS: ASPIRIN 81 MG ENTERIC TABLET PO (08:13)
[2023-12-23] MEDS: carvediloL 12.5 MG TABLET PO (08:13)
[2023-12-23] MEDS: MULTIVITAMINS /C LUTEIN (CENTRUM SILVER) TABLET *BKC 1 TAB PO (08:13)
[2023-12-23] MEDS: SITagliptin PHOSPHATE 25 MG TABLET PO (08:13)
[2023-12-23] MEDS: FINASTERIDE 5 MG TABLET PO (08:14)
[2023-12-23] MEDS: ATORVASTATIN 40 MG TABLET PO (08:14)
[2023-12-23 11:46] LABS: Glucose Point of Care 209 mg/dl (65-105)
[2023-12-23 13:31] VITALS: BP 140/70; PULSE 70; RESP 18; TEMP 36.6; O2SAT 99
--- NOTE | 2023-12-23 14:14 | PM.DS ---
DS: Admitting Diagnosis Discharge Date 12/22 Admitting Diagnosis confusion, nausea, vomiting DS: Discharge Diagnosis Discharge Diagnosis (1) AMS (altered mental status): Qualifiers: Altered mental status type: delirium Qualified Code(s): R41.0 - Disorientation, unspecified Code(s): R41.82 - Altered mental status, unspecified Status: Acute Assessment and Plan: - CT Head: No intracranial hemorrhage, mass, or acute infarct. Atrophy and chronic white matter changes, as above. - general cognitive decline over the last 5-6 months - suspect bizarre behavior and alteration secondary to UTI, treat underlying pathology. - neuro checks Q shift - TSH normal (2) Urinary tract infection: Qualifiers: Hematuria presence: with hematuria Urinary tract infection type: acute cystitis Qualified Code(s): N30.01 - Acute cystitis with hematuria Code(s): N39.0 - Urinary tract infection, site not specified Status: Acute Assessment and Plan: - UA: Turbid, 3+ protein, 2+ glucose, 3+ blood, 2+ leuks, 11-20 RBC, greater than 100 WBC, no epithelial cells, 1+ bacteria - UC pending, obtained on 12/19 - previous micro reviewed, one UC on file and showed coag neg staph rodriguez sensitive - started on Ceftriaxone on 12/19 - offered low-dose suppressive antibiotics, son at bedside at time of Urology evaluation. declined at this time due to concern he will have another infection to another part of his body and he will be resistant to treatment due to daily abx use. -blood cultures ordered and have no growth to date -white blood cell count was normal on admission however he had been on antibiotics recently -procalcitonin ordered--negative (3) Hydronephrosis: Qualifiers: Hydronephrosis type: with ureteral calculous obstruction Qualified Code(s): N13.2 - Hydronephrosis with renal and ureteral calculous obstruction Code(s): N13.30 - Unspecified hydronephrosis Status: Chronic Assessment and Plan: - CT abdomen/pelvis: No acute abnormality. No definite change from prior exam. Stable marked, severe right hydronephrosis and right cortical thinning, with stable obstructing 1.7 x 1.2 cm proximal right ureteral stone. Additional chronic findings, as above. - urology consulted, see note. no intervention given chronicity. - monitor renal function (4) Nausea: Code(s): R11.0 - Nausea Status: Acute Assessment and Plan: - CT abd/pelvis: no acute findings, some chronic findings, see note - add viral PCR - antiemetics prn - last BM today (12/19) -possibly viral gastroenteritis? 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 use Diabetes mellitus complication status: without complication Qualified Code(s): E11.9 - Type 2 diabetes mellitus without complications Code(s): E11.9 - Type 2 diabetes mellitus without complications Status: Chronic Assessment and Plan: - hypoglycemia protocol - POC blood glucose ACHS - home medication: continue sitagliptin - correct regimen ordered - low dose TIDWM - A1C ordered (6) Hypertension: Qualifiers: Hypertension type: essential hypertension Qualified Code(s): I10 - Essential (primary) hypertension Code(s): I10 - Essential (primary) hypertension Status: Chronic Assessment and Plan: - chronic, currently 147/60 - continue home medications: carvedilol 12.5 mg b.i.d. - monitor Plan Patient here with on going confusion with new nausea and vomiting. Treated with cephalexin antibiotic course x2 for UTI without resolution. Started on ceftriaxone on 12/19 and urine culture pending. Urology consulted. Will give slow infusion of 1L NS. May need PT/OT evaluation and treatment once more improved. Family did not feel they could take care of him at home at this time. Diet: D
== END 2023-12-23 16:30 | DRG 690 ==
LOC: ANHED 11:14 → ANH3MEDSUR 15:29
PROVIDERS: Emergency Medicine; Student in an Organized Health Care Education/Training Program; Admitting Provider Internal Medicine; Emergency Provider Nurse Practitioner Family; PCP Physician Assistant; Visit Provider Nurse Practitioner Acute Care
DX: N13.6 Pyonephrosis (principal); E87.1 Hypo-osmolality and hyponatremia; R41.82 Altered mental status, unspecified; I25.10 Atherosclerotic heart disease of native coronary artery without angina pectoris; I10 Essential (primary) hypertension; I73.9 Peripheral vascular disease, unspecified; E11.9 Type 2 diabetes mellitus without complications; Z95.1 Presence of aortocoronary bypass graft; Z90.49 Acquired absence of other specified parts of digestive tract; Z87.891 Personal history of nicotine dependence
CPT/HCPCS: 36415; 70450; 71045; 74176; 80048; 80053; 81001; 82948; 83036; 83690; 83735; 84100; 84145; 84443; 84484; 85025; 87040; 87086; 87637; 93005; 96361; 96374; 96375; 97110; 97161; 97165; 97530; 97535; 99285; A9270; J0696; J1815; J2405; J7030

== ENCOUNTER 2023-12-25 03:56 | Emergency (ER) | payer MEDICARE, SELFPAY ==
[2023-12-25 04:13] VITALS: O2SAT 100
--- NOTE | 2023-12-25 04:30 | ED.GENADULT ---
HPI - General Adult General Chief complaint: Cardiac Arrest/CPR Stated complaint: cardiac arrest Time Seen by Provider: 12/25/23 04:30 History of Present Illness HPI narrative: Patient is a 88-year-old gentleman who presents emergency department with chief complaint of cardiac arrest. The patient was at [facility] since the after having a ureteral stone and complex UTI. Patient started having nausea and vomiting when EMS arrived the patient was altered and was having agonal respirations. Upon getting the patient back in the ambulance the patient had loss of pulse ACLS protocols were started immediately by EMS AI gel and IO were started on the patient Related Data Home Medications Medication Instructions Recorded Confirmed aspirin 81 mg tablet,delayed 81 mg PO DAILY 02/17/20 12/23/23 release (Adult Low Dose Aspirin) rivaroxaban 2.5 mg tablet (Xarelto) 2.5 mg PO BID 06/20/20 12/23/23 multivit with minerals-iron 18 1 tablet PO DAILY 06/30/20 12/23/23 mg-folic ac 400 mcg-vit K 25 mcg tablet (Adults Multivitamin) cholecalciferol (vitamin D3) 50 50 mcg PO BID 07/04/20 12/23/23 mcg (2,000 unit) tablet (Vitamin D3) sitagliptin phosphate 25 mg tablet 25 mg PO DAILY 01/17/21 12/23/23 (Januvia) [place] 3 Fish Oil 1 cap PO BID 08/21/21 12/23/23 Vitamin D Synergy 50 mcg PO DAILY 08/21/21 12/23/23 atorvastatin 40 mg tablet 40 mg PO DAILY 08/21/21 12/23/23 cyanocobalamin (vitamin B-12) 500 500 mcg PO DAILY 08/21/21 12/23/23 mcg tablet (Vitamin B-12) zinc gluconate 50 mg tablet 50 mg PO DAILY 08/21/21 12/23/23 carvedilol 12.5 mg tablet 12.5 mg PO BID 12/20/23 12/23/23 duloxetine 30 mg capsule,delayed 30 mg PO DAILY 12/20/23 12/23/23 release finasteride 5 mg tablet 5 mg PO DAILY 12/20/23 12/23/23 Allergies Allergy/AdvReac Type Severity Reaction Status Date / Time No Known Allergies Allergy Verified 12/23/23 18:45 Review of Systems Review of Systems: Unable to obtain due to patient in cardiac arrest PMFSH Past Medical History Medical History Actinic keratosis Adenomatous colon polyp CAD (coronary artery disease) Diabetes Elevated liver enzymes High cholesterol Hypertension Impaired cognition PVD (peripheral vascular disease) Renal stone Seborrheic keratosis Skin neoplasm Surgical History Surgical History 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 Hx laparoscopic cholecystectomy S/P hernia surgery umbilical S/P trigger finger release Family History Family History Other Family history of heart disease in male family member before age 55 Family history of malignant neoplasm Family history of tuberculosis Social History Social History Smoking packs per day: 2 Smoking cigarettes per day: 40.0 Years smoked: 57 Smoking pack-years: 114.00 Smoking status: Former smoker Smoking end date: 06/10/03 Additional smoking assessment comments: SMOKED 2 PKS/DAY FOR APPROX 15YRS Alcohol intake: former Substance use: never Substance use type: does not use Do You Feel Safe in your Home?: Yes Lack of Transportation: No Lack of Food: Never True Current Housing: I Have Housing Concerned About Future Housing: No Difficulty Paying Gas/Electric Bills: No Difficulty Paying for Meds: No Currently Unemployed: No Education: High School Diploma/GED Difficulty w/ Childcare or Family Care: No Living arrangements: with family Additional living arrangements comments: Occupation/Education: retired Gender identity (if verbalized by the patient): Male Spiritual care concerns: No Exam Narrative: GENERAL: Ill-appearing unresponsive HEAD: Normocephalic, atraumatic. EYES: Pupils fixed and dilated. ENT: E
--- NOTE | 2023-12-25 04:35 | PC.NURSE ---
ACLS protocols resumed with EDP at bedside. Epinephrine administered by RN at 0401 per VORB of EDP Zuleika. 50 meQ of Sodium Bicarb administered at 0401 IO per VORB of EDP Zuleika. Pulse check performed at 0402 showing asystole; EDP confirmed. 1 mg of Epinephrine administered IO at 0404. EDP VORB for a second 50 meq of Sodium Bicarb; administered at 0405. IV established in 18 G right AC by Kurtis Gonzalez RN. VTach on the monitor at 0406 during pulse check; defibrillation at 0406; compressions resumed. Patient intubated at 0406 by EDP Zuleika with 7.5 ETT 21 at the lip. Confirmed by respiratory and EDP Lipsmeyer with colormetric device and auscultation. Pulse check at 0408 showing asystole. Epinephrine and third amp of 50 meQ of Sodium Bicarb administered at 0408. Pulse check at 0410 showing asystole; confirmed by EDP. Epinephrine administered at 0411. Pulse check performed at 0412 showing asystole on the monitor; confirmed by EDP. Pulse check showing asystole at 0414. Ultrasound heartbeat by EDP at 0416 showing bradycardia. Epinephrine administered at 0416. 1 mg of Atropine administered due to bradycardia at 0416. 1 G of Calcium at 0416. Pulse check at 0418 with a irregular rhythm at 68 BPM; confirmed with ultrasound/doppler. EDP VORB for 1G of Calcium at 0419. Asystole noted at 0420. Compressions resumed. 1 mg Epinephrine at 0421 VORB. Pulse check at 0422 showing asystole. 0424 EDP calls time of .
--- NOTE | 2023-12-25 04:50 | PC.NURSE ---
[facility] coroner called to notify of patients .
--- NOTE | 2023-12-25 04:53 | PC.NURSE ---
Lexie Moraes called and will sign certificate
--- NOTE | 2023-12-25 05:08 | PC.NURSE ---
Rula at [facility] called.
--- NOTE | 2023-12-25 05:36 | PC.NURSE ---
MTS released patient.
== END 2023-12-25 08:08 | disposition expired ==
PROVIDERS: Emergency Provider Emergency Medicine; PCP Physician Assistant
DX: I46.9 Cardiac arrest, cause unspecified (principal); I10 Essential (primary) hypertension; I25.10 Atherosclerotic heart disease of native coronary artery without angina pectoris; E78.00 Pure hypercholesterolemia, unspecified; E11.51 Type 2 diabetes mellitus with diabetic peripheral angiopathy without gangrene; I73.9 Peripheral vascular disease, unspecified; Z95.1 Presence of aortocoronary bypass graft; Z85.828 Personal history of other malignant neoplasm of skin; Z87.442 Personal history of urinary calculi; Z86.010 Personal history of colon polyps; Z87.891 Personal history of nicotine dependence; Z90.49 Acquired absence of other specified parts of digestive tract; Z79.82 Long term (current) use of aspirin; Z79.01 Long term (current) use of anticoagulants; Z79.84 Long term (current) use of oral hypoglycemic drugs
CPT/HCPCS: 31500; 92950; 96374; 96375; 99285; J0171; J0461; J7030